=== PATIENT | female | born 1980 | race Caucasian/White ===

== ENCOUNTER → 2016-02-20 | Outpatient (CLI) | payer OTHER, MEDICAID ==
[~2016-02-20] MED LIST: CYCL1TAB29 PO; IBUP800T23 PO
[2016-02-20 14:21] LABS: AUTOMATED NEUTROPHIL # 6.7 TH/MM3 (1.8-7.7); BASOPHIL # 0.1 TH/MM3 (0-0.2); BASOPHIL % 0.8 % (0.0-2.0); EOSINOPHIL # 0.2 TH/MM3 (0-0.4); EOSINOPHIL % 1.7 % (0.0-4.0); HEMATOCRIT 38.2 % (35.0-46.0); HEMO FLAGS DIFF FINAL; LYMPH % 22.3 % (9.0-44.0); LYMPHOCYTE # 2.2 TH/MM3 (1.0-4.8); MEAN CELL VOLUME 86.5 FL (80.0-100.0); MEAN CORPUSCULAR HEMOGLOBIN 29.4 PG (27.0-34.0); MEAN CORPUSCULAR HGB CONC 33.9 % (32.0-36.0); MONO % 6.1 % (0.0-8.0); NEUT % 69.1 % (16.0-70.0); PLATELET COUNT 334 TH/MM3 (150-450); RED BLOOD COUNT 4.41 MIL/MM3 (4.00-5.30); RED CELL DISTRIBUTION WIDTH 12.8 % (11.6-17.2); WHITE BLOOD COUNT 9.7 TH/MM3 (4.0-11.0)
[2016-02-20 14:32] LABS: BACTERIA, URINE OCC /hpf; BLOOD, URINE SMALL (NEG); COMMENT (UR) CULT NOT INDICATED; CULTURE IF INDICATED CULT NOT INDICATED; GLUCOSE,URINE NEG (NEG); KETONE, URINE NEG (NEG); MUCUS URINE FEW /lpf (OCC); NITRITE,URINE NEG (NEG); SQUAMOUS EPITHELIAL CELL URINE 8 /hpf (0-5); URINE COLOR YELLOW (YELLW/STRAW)
[2016-02-20 14:37] LABS: BETA HCG QUANT LESS THAN 1 MIU/ML (0-5)
--- NOTE | 2016-02-20 22:09 | EKG ---
Date Performed: 02/20/2016 Time Performed: 13:19:26 PTAGE: 36 years EKG: Sinus rhythm NORMAL ECG NO PREVIOUS TRACING DOCTOR: Jim Cunningham Interpretating Date/Time 02/20/2016 22:07:47
== END ==
LOC: CPRE 12:55
PROVIDERS: ATTEND Obstetrics & Gynecology
DX: Z01.810 Encounter for preprocedural cardiovascular examination (principal); Z01.812 Encounter for preprocedural laboratory examination; D25.9 Leiomyoma of uterus, unspecified; N92.0 Excessive and frequent menstruation with regular cycle; N94.6 Dysmenorrhea, unspecified; R10.2 Pelvic and perineal pain
CPT/HCPCS: 36415; 81001; 84702; 85025; 93005

== ENCOUNTER 2016-02-25 11:19 | Observation (INO) | payer OTHER, MEDICAID ==
--- NOTE | 2016-02-23 13:13 | MH ---
cc: AURELIANO GROVES DATE OF ADMISSION: 02/25/2016 ADMISSION DIAGNOSIS Menorrhagia, dysmenorrhea with uterine fibroids. HISTORY OF PRESENT ILLNESS The patient is a 36-year-old single white female para 0-1-1-2 with a history of endometrial ablation in 2006, has had recurrent dysmenorrhea and bleeding and cramping since July of 2015. Her Pap smear on 01/27/2016 was normal. Her pelvic ultrasound from 02/05/2016 showed uterine enlargement to 11.5 cm with probable fibroids, endometrium of 5 mm. Both ovaries appeared normal. She is now admitted for hysterectomy. PAST MEDICAL HISTORY PREVIOUS SURGERY 1. Endometrial ablation in 2006. 2. History of twins in 2000. 3. Ectopic removed in 2003. MEDICATIONS: None. ALLERGIES KEFLEX. SULFA. LIDOCAINE. DECADRON. SERIOUS MEDICAL ILLNESSES Hidradenitis suppurativa involving the axilla. TRANSFUSIONS None. SOCIAL HISTORY: She works at [employer]. She is single. Alcohol - occasional. Cigarettes - one pack per day. Drugs - none. FAMILY HISTORY Non-contributory. PHYSICAL EXAMINATION GENERAL: An obese white female. VITAL SIGNS: Stable. HEENT EXAM: Normal. CHEST: Clear. HEART: Regular rate. BREASTS: Symmetrical. ABDOMEN: Benign. PELVIC EXAM: Normal external genitalia and BUS. Vagina is normal. Cervix normal. Uterus is enlarged, about 12 weeks' size. Adnexa are not palpable. ASSESSMENT As above. PLAN She is now admitted for laparoscopy, probable LASH procedure, possible KALLIE, possible BSO if abnormalities are found. While in the office I have explained the procedures, the risks, benefits and complications. The patient would like to proceed. MD RICKY Wagner/BRIANNE /12:46 PM /1:02 PM
[~2016-02-25] VITALS: Ht 175.3 cm; Wt 111.8 kg
[~2016-02-25 11:19] MED LIST changes: -CYCL1TAB29 PO; -IBUP800T23 PO; +KETOROLAC TROMETHAMINE 60 MG/2 ML (IM) VIAL IM ONE; +LACTATED RINGER'S 1000 ML INJ 1,000 ML IV ONE; +NEOSTIGMINE 3 MG/3 ML SYR IV ONE; +ONDANSETRON HCL 4 MG/2 ML VIAL IV PUSH ONE; +PROPOFOL 200 MG/20 ML AMP IV ONE
[2016-02-25 11:53] VITALS: BP 136/93; PULSE 111; RESP 18; TEMP 98.3; O2SAT 97
[2016-02-25] MEDS ORDERED: SODIUM CHLORID 0.9% 500 ML IV SCH (12:00)
[2016-02-25] MEDS ORDERED: METOPROLOL TARTRATE 25 MG TAB PO PRN (12:00)
[2016-02-25] MEDS ORDERED: ACETAMINOPHEN 1000 MG/100 ML VIAL IV SCH (12:00)
[2016-02-25] MEDS ORDERED: SODIUM CHLORIDE 0.9% INJ 100 ML ONE (12:00)
[2016-02-25] MEDS ORDERED: LACTATED RINGER'S 1000 ML IV SCH (12:00)
[2016-02-25] MEDS ORDERED: INSULIN HUMAN REGULAR 1,000 UNITS/10 ML VIAL SQ PRN (12:00)
[2016-02-25] MEDS ORDERED: CLINDAMYCIN INJ 900 MG in SODIUM CHLORIDE 0.9% INJ 100 ML IV SCH (12:00)
[2016-02-25] MEDS ORDERED: MIDAZOLAM HCL 2 MG/2 ML VIAL ONE ×2 (14:06→14:54)
[2016-02-25] MEDS ORDERED: SCOPOLAMINE 1.5 MG PATCH ONE (14:47)
[2016-02-25] MEDS ORDERED: FAMOTIDINE 20 MG/2 ML VIAL ONE (14:47)
[2016-02-25] MEDS ORDERED: HYDROmorphone HCL PF 1 MG/ML VIAL IV PRN (16:45)
[2016-02-25] MEDS ORDERED: ONDANSETRON ODT 4 MG TAB PO PRN (16:45)
[2016-02-25] MEDS ORDERED: PROMETHAZINE HCL 25 MG TAB PO PRN (16:45)
[2016-02-25] MEDS ORDERED: SODIUM CHLORIDE 0.9% FLUSH 5 ML FLUSH FLUSH PRN (16:45)
[2016-02-25] MEDS ORDERED: PROMETHAZINE INJ 25 MG/ML VIAL IM PRN (16:45)
[2016-02-25] MEDS ORDERED: ZOLPIDEM TARTRATE 5 MG TAB PO PRN (16:45)
[2016-02-25] MEDS ORDERED: diphenhydrAMINE HCL 25 MG CAP PO PRN (16:45)
[2016-02-25] MEDS ORDERED: ONDANSETRON HCL 4 MG/2 ML VIAL IV PRN (16:45)
[2016-02-25] MEDS ORDERED: *ONDANSETRON 4 MG VIAL PERIprocedural Use ONLY ONE (17:01)
[2016-02-25] MEDS ORDERED: fentaNYL CITRATE 250 MCG/5 ML AMP ONE (17:07)
[2016-02-25] MEDS ORDERED: DO NOT ADM ANY ANTICOAGULANT DRUGS XX PRN (17:30)
[2016-02-25] MEDS: D5-1/2 NS + KCL 20 MEQ INJ 1,000 ML IV SCH (17:55)
[2016-02-25 17:58] LABS: HEMATOCRIT 35.7 % (35.0-46.0); REVIEW FLAG FINAL
[2016-02-25] MEDS ORDERED: KETOROLAC TROMETHAMINE 30 MG/ML (IVP) VIAL IVP SCH (18:00)
[2016-02-25] MEDS: ACETAMINOPHEN 1000 MG/100 ML VIAL IV SCH (18:00)
[2016-02-25] MEDS ORDERED: DOCUSATE SODIUM 100 MG CAP PO SCH (18:00)
[2016-02-25 20:00] VITALS: BP 137/91; PULSE 76; RESP 18; TEMP 97.7; O2SAT 98
[2016-02-25] MEDS ORDERED: SODIUM CHLORIDE 0.9% FLUSH 5 ML FLUSH FLUSH SCH (21:00)
[2016-02-25] MEDS ORDERED: METOCLOPRAMIDE HCL 10 MG/2 ML VIAL IV PRN (21:45)
--- NOTE | 2016-02-25 21:48 | MP ---
cc: YANELIAURELIANO DATE OF SURGERY 02/25/2016 DIAGNOSIS Menorrhagia, dysmenorrhea with uterine fibroids. POSTOPERATIVE DIAGNOSIS Menorrhagia, dysmenorrhea with uterine fibroids. PROCEDURE LASH with a bilateral salpingectomy. ANESTHESIA General ET SURGEON Farhad Mathew MD [employer]ARN PREPARATION SUPERVISOR. Henrik Quinn. ESTIMATED BLOOD LOSS About 100 mL. FLUIDS 1.5 liters crystalloid. OBJECTIVE FINDINGS Following induction of adequate general endotracheal anesthesia, the patient was prepped and draped supine on the operating table dorsal lithotomy position usual sterile fashion, bladder being drained via Vogt catheterization. Abdomen was opened through a 4-cm curving infraumbilical incision using a knife to cut down through the skin to the fascia. Fascia opened transversely. Rectus muscle split in the midline and the peritoneum opened sharply without incident. GelPort was placed. Laparoscope was inserted. A 5 port was placed in the left and right lower quadrant. Uterus about 12 weeks' size, enlarged. Ovaries were normal. Cul-de-sacs were clear. Majority of the distal tubes were absent. Appendix was normal. Working first on the left, the harmonic scalpel was used to take the utero-ovarian pedicle, the distal tube, left round ligament, left broad ligament, left-sided bladder flap and left uterine vessels on same on the right. Harmonic scalpel was now used to amputate the fundus from the cervix. The fundus and residual tubes extracted with a pouch. Irrigation performed. No bleeding was evident. Low pressure test was done, there was no bleeding. GelPort was now removed. Peritoneum sutured with a running stitch of 2-0 Vicryl. The fascia with a running locking stitch of 0 Vicryl corner to midline and tied, subcu running 3-0 Vicryl. Skin with running subcuticular 3-0 Monocryl. Scope was now reinserted. The lower 5 port used to inspect the GelPort site was well closed. Ureters were inspected. Good peristalsis. There was no bleeding. The operative sites were coated with Evoseal, scope was removed, gas was allowed to escape and the small ports were closed with 3-0 Monocryl. Sterile bandage applied. Final counts correct and the patient was awaken and taken to recovery room. MD RICKY Wagner/ /9:06 PM /9:35 PM [place]
[2016-02-25] MEDS: KETOROLAC TROMETHAMINE 30 MG/ML (IVP) VIAL IVP SCH (23:36)
[2016-02-26] VITALS: BP 119/60; PULSE 72; RESP 18; TEMP 97.7; O2SAT 98
[2016-02-26 00:30] VITALS: BP 109/76; PULSE 75; RESP 18; TEMP 98; O2SAT 98
[2016-02-26] MEDS: ACETAMINOPHEN 1000 MG/100 ML VIAL IV SCH ×2 (00:34→09:27)
[2016-02-26] MEDS: D5-1/2 NS + KCL 20 MEQ INJ 1,000 ML IV SCH (02:16)
[2016-02-26 04:00] VITALS: BP 119/75; PULSE 74; RESP 18; TEMP 98.1; O2SAT 98
[2016-02-26 06:08] LABS: AUTOMATED NEUTROPHIL # 11.8 TH/MM3 (1.8-7.7); BASOPHIL % 0.2 % (0.0-2.0); EOSINOPHIL % 0.1 % (0.0-4.0); HEMATOCRIT 35.1 % (35.0-46.0); HEMO FLAGS DIFF FINAL; LYMPH % 8.7 % (9.0-44.0); LYMPHOCYTE # 1.2 TH/MM3 (1.0-4.8); MEAN CELL VOLUME 86.4 FL (80.0-100.0); MEAN CORPUSCULAR HEMOGLOBIN 28.8 PG (27.0-34.0); MEAN CORPUSCULAR HGB CONC 33.4 % (32.0-36.0); MONO % 3.8 % (0.0-8.0); NEUT % 87.2 % (16.0-70.0); PLATELET COUNT 290 TH/MM3 (150-450); RED BLOOD COUNT 4.06 MIL/MM3 (4.00-5.30); RED CELL DISTRIBUTION WIDTH 12.8 % (11.6-17.2); WHITE BLOOD COUNT 13.5 TH/MM3 (4.0-11.0)
[2016-02-26] MEDS: KETOROLAC TROMETHAMINE 30 MG/ML (IVP) VIAL IVP SCH (06:14)
[2016-02-26 06:30] LABS: BICARBONATE 24.6 MEQ/L (21.0-32.0); POTASSIUM 4.1 MEQ/L (3.5-5.1)
[2016-02-26 08:07] VITALS: BP 113/79; PULSE 79; RESP 18; TEMP 99.1
== END 2016-02-26 11:32 | disposition home or self-care (01) ==
LOC: HSDC 11:19 → HSDI 16:34 → H1EA 18:31
PROVIDERS: ADMIT Obstetrics & Gynecology; ATTEND Obstetrics & Gynecology
DX: D25.9 Leiomyoma of uterus, unspecified (principal); N80.0 Endometriosis of uterus; N92.0 Excessive and frequent menstruation with regular cycle; N94.6 Dysmenorrhea, unspecified; N94.89 Other specified conditions associated with female genital organs and menstrual cycle
CPT/HCPCS: 00840; 58542; 80048; 85014; 85018; 85025; 86077; 86850; 86870; 86900; 86901; 86902; 86920; 86922; 88307; G0378; J0131; J1885; J2250; J2405; J2550; J2710; J3010; J3480; J7120

== ENCOUNTER 2016-05-15 19:15 | Emergency (ER) | payer MEDICAID, OTHER ==
[~2016-05-15] VITALS: Ht 175.3 cm; Wt 112.0 kg
[2016-05-15 19:17] VITALS: BP 138/100; PULSE 121; RESP 16; TEMP 97.7; O2SAT 98
[2016-05-15] MEDS ORDERED: IBUP800T23 PO (20:40)
[2016-05-15] MEDS ORDERED: CYCL1TAB29 PO (20:40)
[2016-05-15] MEDS ORDERED: IBUPROFEN 800 MG TAB PO ONE (20:45)
[2016-05-15] MEDS ORDERED: CYCLOBENZAPRINE HCL 10 MG TAB PO ONE (20:45)
--- NOTE | 2016-05-15 20:46 | PD ---
HPI Chief Complaint: Pain: Acute or Chronic Time Seen by Provider: 20:40 Travel History International Travel<30 days: No Contact w/Intl Traveler<30days: No Traveled to known affect area: No History of Present Illness HPI 36-year-old white female presents to emergency department for evaluation or workup injury. The patient is a [employer] employee. 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 She states that she was assisting with restraining a patient in the department. She states that she was bending down on the ground helping lift a patient up to help diffuse a situation. She states that she did not notice any discomfort initially. She states later that evening and today she had noticed pain across her lower back with radiation into the right groin. She denies any history of prior back injury. She denies any Bowel or bladder changes. Patient states the pain is worse with bending and movement. She has improvement of symptoms with standing and walking. She denies any urinary symptoms. Pain is mild. PFSH Past Medical History Narrative Medical Ectopic , uterine fibroids, hidradenitis Arthritis: No Asthma: No Autoimmune Disease: No Blood Disorders: No Anxiety: No Depression: No Heart Rhythm Problems: No Cancer: No Cardiovascular Problems: No High Cholesterol: No Chest Pain: No Congestive Heart Failure: No COPD: No Cerebrovascular Accident: No Diabetes: No Diminished Hearing: No Endocrine: No GERD: No Glaucoma: No Headaches: Yes Hepatitis: No Hiatal Hernia: No Hypertension: No Immune Disorder: No Kidney Stones: No Musculoskeletal: No Neurologic: No Psychiatric: No Reproductive: Yes (FIBROIDS) Respiratory: No Immunizations Current: Yes Migraines: Yes Myocardial Infarction: No Renal Failure: No Seizures: No Sickle Cell Disease: No Sleep Apnea: No Thyroid Disease: No Ulcer: No Tetanus Vaccination: < 5 Years ?: Not Menopausal: Yes : 2 Para: 2 Ectopic : Yes Tubal Ligation: Yes Past Surgical History Narrative Surgical , salpingoectomy, uterine ablation, hysterectomy Abdominal Surgery: No AICD: No Body Medical Devices: NONE Cardiac Surgery: No Section: Yes (X1) Ear Surgery: No Endocrine Surgery: No Eye Surgery: No Genitourinary Surgery: No Gynecologic Surgery: Yes (CSECTION, TUBAL LIGATION, TUBES REMOVED D/T ECTOPIC ) Hysterectomy: Yes Joint Replacement: No Oral Surgery: Yes (WISDOM TEETH) Pacemaker: No Thoracic Surgery: No Other Surgery: Yes Social History Alcohol Use: No Tobacco Use: Yes (02/17 PPD X 12 YRS) Substance Use: No Allergies-Medications (Allergen,Severity, Reaction): Coded Allergies: Bactrim (Verified Allergy, Severe, anaph, 05/15/16) Decadron (Verified Allergy, Severe, paresthesia, 05/15/16) Keflex (Verified Allergy, Severe, anaphalAXIS, 05/15/16) Lidocaine (Verified Allergy, Severe, anaphalactic, 05/15/16) Reported Meds & Prescriptions Reported Meds & Active Scripts Active Flexeril (Cyclobenzaprine HCl) 10 Mg Tab 10 Mg PO TID Ibuprofen 800 Mg Tab 800 Mg PO Q8H PRN Review of Systems Except as stated in HPI: all other systems reviewed are Neg Musculoskeletal: Positive: Myalgias, Pain, No: Arthralgias, Limited ROM, Weakness Neurologic: No: Weakness, Paresthesia Physical Exam Narrative GENERAL: Well-developed, well-nourished in no apparent distress. Nontoxic appearing. HEAD: Normocephalic, atraumatic. EYES: Pupils equal round and reactive. Extraocular motions intact. No scleral icterus. No injection or drainage. ENT: Nose clear. Throat without erythema, tonsillar hypertrophy or exudate. Uvula midline. Airway patent. NECK: Trachea midline. Supple, nontender, moves head freely. No central bony tenderness or spasm. CARDIOVASCULAR: Regular rate and rhythm without murmurs, gallops, or rubs. RESPIRATORY: Clear to auscultation. Breath sounds equal bilaterally. No wheezes , rales, or rhonchi. GASTROINTESTINAL: Abdomen soft, non-tender, nondistended. No hepato-splenomegaly , or palpable masses. No guarding. EXTREMITIES: No clubbing, cyanosis, or edema. No joint tenderness. BACK: No central bony tenderness to palpation of dorsal lumbar spine. Patient is complaining of tenderness along the paralumbar musculature on the lumbar spine. Negative straight leg raise. Heel and toe stand. Deep tendon reflexes are 3+ bilaterally. No saddle anesthesia. Range of motion is full. Without deformity. No flank tenderness. NEUROLOGICAL: Awake, alert and oriented x 3 .Cranial nerves grossly intact. Motor and sensory grossly within normal limits. Normal speech. Data Data Last Documented VS Vital Signs Date Time Temp Pulse Resp B/P Pulse Ox O2 Delivery O2 Flow Rate FiO2 05/15/16 19:17 97.7 121 16 138/100 98 Room Air Orders Ibuprofen (Motrin) (05/15/16 20:45) Cyclobenzaprine (Flexeril) (05/15/16 20:45) MDM Medical Decision Making Medical Screen Exam Complete: Yes Emergency Medical Condition: Yes Medical Record Reviewed: Yes Differential Diagnosis MDM: High Differential diagnoses: Fracture, sprain, strain, dislocation, contusion, neurovascular injury Narrative Course This is a 36-year-old white female [employer] employee complaints of lower back pain after assisting in the psych department with a code estrada. The patient states that she injured her lower back. She states the pain is mild. She'll be given NSAID and muscle relaxer. 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 She is advised to follow-up with employee med if symptoms persist. Patient is given Motrin 800 mg and flexural 10 mg by mouth. This is lumbar strain Diagnosis Primary Impression: Lumbar strain Qualified Code: S39.012A - Lumbar strain, initial encounter Patient Instructions: General Instructions Additional Instructions: Rest. Ice for the next 3 days followed by heat . Flexeril and Voltaren. Follow-up with employee med. Call them Tuesday. Return to the ER for emergencies. Med/Other Pt SpecificInfo: Prescription(s) given Scripts Cyclobenzaprine (Flexeril)10 Mg Tab10 Mg PO TID #21 TAB Prov:Ari Cunningham MD 05/15/16 Ibuprofen 800 Mg [id number] Mg PO Q8H PRN (Pain/Inflammation) #21 TAB Prov:Ari Cunningham MD 05/15/16 Disposition: 01 DISCHARGE HOME Condition: Stable Zachariah Sharp May 15, 2016 20:46
== END 2016-05-15 21:23 | disposition home or self-care (01) ==
LOC: NETRI 19:15
DX: S39.012A Strain of muscle, fascia and tendon of lower back, initial encounter (principal); R10.31 Right lower quadrant pain; F17.200 Nicotine dependence, unspecified, uncomplicated; Z87.42 Personal history of other diseases of the female genital tract; Z87.2 Personal history of diseases of the skin and subcutaneous tissue; Z86.69 Personal history of other diseases of the nervous system and sense organs; X50.9XXA Other and unspecified overexertion or strenuous movements or postures, initial encounter; Y93.F2 Activity, caregiving, lifting; Y92.239 Unspecified place in hospital as the place of occurrence of the external cause; Y99.0 Civilian activity done for income or pay
CPT/HCPCS: 99283

== ENCOUNTER 2017-06-05 17:49 | Emergency (ER) | payer OTHER ==
[~2017-06-05] VITALS: Ht 175.3 cm; Wt 113.0 kg
[~2017-06-05 17:49] MED LIST changes: +CYCL10TA PO; +IBUP1TAB7 PO; -KETOROLAC TROMETHAMINE 60 MG/2 ML (IM) VIAL IM ONE; -LACTATED RINGER'S 1000 ML INJ 1,000 ML IV ONE; -NEOSTIGMINE 3 MG/3 ML SYR IV ONE; -ONDANSETRON HCL 4 MG/2 ML VIAL IV PUSH ONE; -PROPOFOL 200 MG/20 ML AMP IV ONE
[2017-06-05 18:00] VITALS: BP 184/86; PULSE 102; RESP 17; TEMP 98.1; O2SAT 99
[2017-06-05] MEDS ORDERED: SODIUM CHLOR 0.9% 1000 ML INJ 1,000 ML IV SCH (18:14)
[2017-06-05] MEDS ORDERED: ONDANSETRON HCL 4 MG/2 ML VIAL IVP ONE (18:15)
[2017-06-05] MEDS ORDERED: MORPHINE SULFATE 4 MG/ML INJ IV PUSH ONE (18:15)
[2017-06-05] MEDS ORDERED: SODIUM CHLORIDE 0.9% FLUSH 10 ML FLUSH IV FLUSH PRN (18:15)
[2017-06-05] MEDS ORDERED: KETOROLAC TROMETHAMINE 30 MG/ML (IVP) VIAL IVP ONE (18:15)
--- NOTE | 2017-06-05 18:23 | PD ---
HPI Chief Complaint: Abdominal Pain Time Seen by Provider: 18:09 Travel History International Travel<30 days: No Contact w/Intl Traveler<30days: No Traveled to known affect area: No History of Present Illness HPI 37-year-old female presents emergency department with ongoing and worsening abdominal pain, and nausea. Patient states she has had intermittent right upper quadrant pain and tenderness with nausea progressively worsening over the past 8 months. Patient states she was seen by her primary care physician in February and had an ultrasound but never received the results. She has an appointment with him on June 24. She states she probably has " gallbladder disease". Patient has been seen twice for this at [facility] with 2 CT scans showing no acute process. Patient states since Tuesday she has had increasing pain with radiation to the lower back and both shoulders, which is worsened with food. She reports changes in her stool including increased greasy stools and increased gas and cramping. She denies fever, chills, chest pain, or shortness of breath. Patient denies changes in urine or vaginal discharge. She denies heartburn. She is allergic to cephalexin, dexamethasone , lidocaine, sulfa. PFSH Past Medical History Arthritis: No Asthma: No Autoimmune Disease: No Blood Disorders: No Anxiety: No Depression: No Heart Rhythm Problems: No Cancer: No Cardiovascular Problems: No High Cholesterol: No Chest Pain: No Congestive Heart Failure: No COPD: No Cerebrovascular Accident: No Diabetes: No Diminished Hearing: No Endocrine: No GERD: No Glaucoma: No Headaches: Yes Hepatitis: No Hiatal Hernia: No Hypertension: No Immune Disorder: No Kidney Stones: No Medical other: Yes (HYDRANITIS,FUNGUS ON SKIN ON TORSO AND ARMS) Musculoskeletal: No Neurologic: No Psychiatric: No Reproductive: Yes (FIBROIDS) Respiratory: No Immunizations Current: Yes Migraines: Yes Myocardial Infarction: No Renal Failure: No Seizures: No Sickle Cell Disease: No Sleep Apnea: No Thyroid Disease: No Ulcer: No ?: Not LMP: UTERUS REMOVED Menopausal: Yes : 2 Para: 2 Ectopic : Yes Tubal Ligation: Yes Past Surgical History Abdominal Surgery: No AICD: No Body Medical Devices: NONE Cardiac Surgery: No Section: Yes (X1) Ear Surgery: No Endocrine Surgery: No Eye Surgery: No Genitourinary Surgery: No Gynecologic Surgery: Yes (CSECTION, TUBAL LIGATION, TUBES REMOVED D/T ECTOPIC ) Hysterectomy: Yes Joint Replacement: No Oral Surgery: Yes (WISDOM TEETH) Pacemaker: No Thoracic Surgery: No Other Surgery: Yes Social History Alcohol Use: No Tobacco Use: Yes (02/17 PPD X 12 YRS) Substance Use: No Allergies-Medications (Allergen,Severity, Reaction): Coded Allergies: cephalexin (Unverified Allergy, Severe, anaphalAXIS, 06/05/17) dexamethasone (Unverified Allergy, Severe, paresthesia, 06/05/17) lidocaine (Unverified Allergy, Severe, anaphalactic, 06/05/17) sulfamethoxazole (Unverified Allergy, Severe, anaph, 06/05/17) trimethoprim (Unverified Allergy, Severe, anaph, 06/05/17) Reported Meds & Prescriptions Reported Meds & Active Scripts Active Flexeril (Cyclobenzaprine HCl) 10 Mg Tab 10 Mg PO TID Ibuprofen 800 Mg Tab 800 Mg PO Q8H PRN Review of Systems Except as stated in HPI: all other systems reviewed are Neg General / Constitutional: No: Fever Eyes: No: Visual changes HENT: No: Headaches Cardiovascular: No: Chest Pain or Discomfort Respiratory: No: Shortness of Breath Gastrointestinal: Positive: Nausea, Diarrhea, Abdominal Pain, Changes in Bowel Habits, Indigestion, No: Vomiting, Hematemesis, Hematochezia, Constipation, Dysphagia, Loss of Appetite, Other Genitourinary: No: Urgency, Frequency, Dysuria Musculoskeletal: No: Pain Skin: No Rash Neurologic: No: Weakness Psychiatric: No: Depression Endocrine: No: Polydipsia Hematologic/Lymphatic: No: Easy Bruising Physical Exam Narrative GENERAL: Patient appears in mild to moderate distress. SKIN: Warm and dry. Normal color. Normal turgor. No rash. HEAD: Atraumatic. Normocephalic. EYES: Pupils equal and round. No scleral icterus. No injection or drainage. ENT: No nasal bleeding or discharge. Mucous membranes pink and moist. Pharynx is clear. Airways patent. NECK: Trachea midline. Supple and nontender.. CARDIOVASCULAR: Regular rate and rhythm. RESPIRATORY: No accessory muscle use. Clear to auscultation. Breath sounds equal bilaterally. GASTROINTESTINAL: Abdomen soft, moderate right upper quadrant tenderness, nondistended. Positive Sams sign. Hepatic and splenic margins not palpable. No CVA tenderness. MUSCULOSKELETAL: Extremities without clubbing, cyanosis, or edema. No obvious deformities. NEUROLOGICAL: Awake and alert. No obvious cranial nerve deficits. Motor grossly within normal limits. Five out of 5 muscle strength in the arms and legs. Normal speech. PSYCHIATRIC: Appropriate mood and affect; insight and judgment normal. Data Data Last Documented VS Vital Signs Date Time Temp Pulse Resp B/P (MAP) Pulse Ox O2 Delivery O2 Flow Rate FiO2 06/05/17 18:00 98.1 102 17 184/86 (118) 99 Orders Orders Urinalysis - C+S If Indicated (06/05/17 18:03) Complete Blood Count With Diff (06/05/17 18:14) Comprehensive Metabolic Panel (06/05/17 18:14) Lipase (06/05/17 18:14) Prothrombin Time / Inr (Pt) (06/05/17 18:14) Act Partial Throm Time (Ptt) (06/05/17 18:14) Us Abdomen Gallbladder (06/05/17 ) Iv Access Insert/Monitor (06/05/17 18:14) Ecg Monitoring (06/05/17 18:14) Oximetry (06/05/17 18:14) NPO (06/05/17 18:14) Morphine Inj (Morphine Inj) (06/05/17 18:15) Ondansetron Inj (Zofran Inj) (06/05/17 18:15) Sodium Chlor 0.9% 1000 Ml Inj (Ns 1000 M (06/05/17 18:14) Sodium Chloride 0.9% Flush (Ns Flush) (06/05/17 18:15) Electrocardiogram (06/05/17 18:14) Ketorolac Inj (Toradol Inj) (06/05/17 18:15) Lactic Acid (06/05/17 18:24) Labs Laboratory Tests Test 06/05/17 18:06 06/05/17 18:25 Urine Color COLORLESS Urine Turbidity CLEAR Urine pH 6.0 Urine Specific [place] 1.003 Urine Protein NEG mg/dL Urine Glucose (UA) NEG mg/dL Urine Ketones NEG mg/dL Urine Occult Blood TRACE Urine Nitrite NEG Urine Bilirubin NEG Urine Urobilinogen LESS THAN 2.0 MG/DL Urine Leukocyte Esterase NEG Urine RBC 1 /hpf Urine WBC 1 /hpf Urine Squamous Epithelial Cells 3 /hpf Urine Bacteria OCC /hpf Microscopic Urinalysis Comment CULT NOT INDICATED White Blood Count 11.4 TH/MM3 Red Blood Count 4.26 MIL/MM3 Hemoglobin 12.4 GM/DL Hematocrit 36.9 % Mean Corpuscular Volume 86.6 FL Mean Corpuscular Hemoglobin 29.2 PG Mean Corpuscular Hemoglobin Concent 33.7 % Red Cell Distribution Width 12.7 % Platelet Count 342 TH/MM3 Mean Platelet Volume 7.5 FL Neutrophils (%) (Auto) 64.9 % Lymphocytes (%) (Auto) 26.6 % Monocytes (%) (Auto) 6.2 % Eosinophils (%) (Auto) 1.6 % Basophils (%) (Auto) 0.7 % Neutrophils # (Auto) 7.4 TH/MM3 Lymphocytes # (Auto) 3.0 TH/MM3 Monocytes # (Auto) 0.7 TH/MM3 Eosinophils # (Auto) 0.2 TH/MM3 Basophils # (Auto) 0.1 TH/MM3 CBC Comment DIFF FINAL Differential Comment MDM Medical Decision Making Medical Screen Exam Complete: Yes Emergency Medical Condition: Yes Medical Record Reviewed: Yes Differential Diagnosis Gastritis. Gallbladder disease. Pancreatitis Narrative Course Patient appears in moderate distress. Labs ordered including CBC, CMP, coagulation studies, lipase, lactic acid, and urinalysis. Ultrasound of the gallbladder is ordered. Patient is given IV morphine 2 mg, 30 mg Toradol IV, and 4 mg Zofran IV. Patient is given 1000 mL of normal saline bolus. Urinalysis is unremarkable. EKG shows normal sinus rhythm. CBC shows leukocytosis of 11.4. 1900 hrs., shift change, care of patient is turned over to Rosanna Green nurse practitioner for ongoing treatment and disposition. Condition: Stable Alex Horowitz Jun 05, 2017 18:23
[2017-06-05 18:32] LABS: BACTERIA, URINE OCC /hpf; BILIRUBIN, URINE NEG (NEG); BLOOD, URINE TRACE (NEG); GLUCOSE,URINE NEG (NEG); KETONE, URINE NEG (NEG); NITRITE,URINE NEG (NEG); SQUAMOUS EPITHELIAL CELL URINE 3 /hpf (0-5); URINE COLOR COLORLESS (YELLW/STRAW); URINE LEUKOCYTE ESTERASE NEG (NEG)
[2017-06-05 18:53] LABS: AUTOMATED NEUTROPHIL # 7.4 TH/MM3 (1.8-7.7); BASOPHIL # 0.1 TH/MM3 (0-0.2); BASOPHIL % 0.7 % (0.0-2.0); EOSINOPHIL # 0.2 TH/MM3 (0-0.4); EOSINOPHIL % 1.6 % (0.0-4.0); HEMATOCRIT 36.9 % (35.0-46.0); HEMOGLOBIN 12.4 GM/DL (11.6-15.3); LYMPH % 26.6 % (9.0-44.0); MEAN CELL VOLUME 86.6 FL (80.0-100.0); MEAN CORPUSCULAR HEMOGLOBIN 29.2 PG (27.0-34.0); MEAN CORPUSCULAR HGB CONC 33.7 % (32.0-36.0); MEAN PLATELET VOLUME 7.5 FL (7.0-11.0); MONO % 6.2 % (0.0-8.0); MONOCYTE # 0.7 TH/MM3 (0-0.9); NEUT % 64.9 % (16.0-70.0); PLATELET COUNT 342 TH/MM3 (150-450); RED BLOOD COUNT 4.26 MIL/MM3 (4.00-5.30); RED CELL DISTRIBUTION WIDTH 12.7 % (11.6-17.2); WHITE BLOOD COUNT 11.4 TH/MM3 (4.0-11.0)
[2017-06-05 18:58] LABS: PROTHROMBIN TIME - PATIENT 10.1 SEC (9.8-11.6)
[2017-06-05 19:05] LABS: ALBUMIN 3.5 GM/DL (3.4-5.0); AST (GOT) 12 U/L (15-37); BICARBONATE 24.5 MEQ/L (21.0-32.0); BLOOD UREA NITROGEN 9 MG/DL (7-18); CALCIUM 8.9 MG/DL (8.5-10.1); CHLORIDE 106 MEQ/L (98-107); CREATININE 0.75 MG/DL (0.50-1.00); GLOMERULAR FILTRATION RATE 86 ML/MIN (>89); GLUCOSE,RANDOM 88 MG/DL (74-106); SODIUM (NA) 138 MEQ/L (136-145)
[2017-06-05 19:06] LABS: ALT (GPT) 34 U/L (10-53)
[2017-06-05 19:09] LABS: ALKALINE PHOSPHATASE 93 U/L (45-117); TOTAL BILIRUBIN ADULT 0.2 MG/DL (0.2-1.0); TOTAL PROTEIN 7.8 GM/DL (6.4-8.2)
--- NOTE | 2017-06-05 19:20 | PD ---
Physical Exam Date Seen by Provider: Jun 05, 2017 Time Seen by Provider: 19:20 Narrative For full history and physical examination please see previous providers note. Data Data Last Documented VS Vital Signs Date Time Temp Pulse Resp B/P (MAP) Pulse Ox O2 Delivery O2 Flow Rate FiO2 06/05/17 19:31 92 20 119/77 (91) 100 Room Air 06/05/17 18:00 98.1 Orders Orders Urinalysis - C+S If Indicated (06/05/17 18:03) Complete Blood Count With Diff (06/05/17 18:14) Comprehensive Metabolic Panel (06/05/17 18:14) Lipase (06/05/17 18:14) Prothrombin Time / Inr (Pt) (06/05/17 18:14) Act Partial Throm Time (Ptt) (06/05/17 18:14) Us Abdomen Gallbladder (06/05/17 ) Iv Access Insert/Monitor (06/05/17 18:14) Ecg Monitoring (06/05/17 18:14) Oximetry (06/05/17 18:14) NPO (06/05/17 18:14) Morphine Inj (Morphine Inj) (06/05/17 18:15) Ondansetron Inj (Zofran Inj) (06/05/17 18:15) Sodium Chlor 0.9% 1000 Ml Inj (Ns 1000 M (06/05/17 18:14) Sodium Chloride 0.9% Flush (Ns Flush) (06/05/17 18:15) Electrocardiogram (06/05/17 18:14) Ketorolac Inj (Toradol Inj) (06/05/17 18:15) Lactic Acid (06/05/17 18:24) Prochlorperazine Inj (Compazine Inj) (06/05/17 19:30) Morphine Inj (Morphine Inj) (06/05/17 19:30) Labs Laboratory Tests Test 06/05/17 18:06 06/05/17 18:25 Urine Color COLORLESS Urine Turbidity CLEAR Urine pH 6.0 Urine Specific [place] 1.003 Urine Protein NEG mg/dL Urine Glucose (UA) NEG mg/dL Urine Ketones NEG mg/dL Urine Occult Blood TRACE Urine Nitrite NEG Urine Bilirubin NEG Urine Urobilinogen LESS THAN 2.0 MG/DL Urine Leukocyte Esterase NEG Urine RBC 1 /hpf Urine WBC 1 /hpf Urine Squamous Epithelial Cells 3 /hpf Urine Bacteria OCC /hpf Microscopic Urinalysis Comment CULT NOT INDICATED White Blood Count 11.4 TH/MM3 Red Blood Count 4.26 MIL/MM3 Hemoglobin 12.4 GM/DL Hematocrit 36.9 % Mean Corpuscular Volume 86.6 FL Mean Corpuscular Hemoglobin 29.2 PG Mean Corpuscular Hemoglobin Concent 33.7 % Red Cell Distribution Width 12.7 % Platelet Count 342 TH/MM3 Mean Platelet Volume 7.5 FL Neutrophils (%) (Auto) 64.9 % Lymphocytes (%) (Auto) 26.6 % Monocytes (%) (Auto) 6.2 % Eosinophils (%) (Auto) 1.6 % Basophils (%) (Auto) 0.7 % Neutrophils # (Auto) 7.4 TH/MM3 Lymphocytes # (Auto) 3.0 TH/MM3 Monocytes # (Auto) 0.7 TH/MM3 Eosinophils # (Auto) 0.2 TH/MM3 Basophils # (Auto) 0.1 TH/MM3 CBC Comment DIFF FINAL Differential Comment Prothrombin Time 10.1 SEC Prothromb Time International Ratio 1.0 RATIO Activated Partial Thromboplast Time 26.3 SEC Blood Urea Nitrogen 9 MG/DL Creatinine 0.75 MG/DL Random Glucose 88 MG/DL Total Protein 7.8 GM/DL Albumin 3.5 GM/DL Calcium Level 8.9 MG/DL Alkaline Phosphatase 93 U/L Aspartate Amino Transf (AST/SGOT) 12 U/L Alanine Aminotransferase (ALT/SGPT) 34 U/L Total Bilirubin 0.2 MG/DL Sodium Level 138 MEQ/L Potassium Level 3.8 MEQ/L Chloride Level 106 MEQ/L Carbon Dioxide Level 24.5 MEQ/L Anion Gap 8 MEQ/L Estimat Glomerular Filtration Rate 86 ML/MIN Lactic Acid Level 1.3 mmol/L Lipase 89 U/L [facility] Medical Record Reviewed: Yes Supervised Visit with JOANN: Yes Interpretation(s) Laboratory Tests Test 06/05/17 18:06 06/05/17 18:25 Urine Color COLORLESS Urine Turbidity CLEAR Urine pH 6.0 Urine Specific [place] 1.003 Urine Protein NEG mg/dL Urine Glucose (UA) NEG mg/dL Urine Ketones NEG mg/dL Urine Occult Blood TRACE Urine Nitrite NEG Urine Bilirubin NEG Urine Urobilinogen LESS THAN 2.0 MG/DL Urine Leukocyte Esterase NEG Urine RBC 1 /hpf Urine WBC 1 /hpf Urine Squamous Epithelial Cells 3 /hpf Urine Bacteria OCC /hpf Microscopic Urinalysis Comment CULT NOT INDICATED White Blood Count 11.4 TH/MM3 Red Blood Count 4.26 MIL/MM3 Hemoglobin 12.4 GM/DL Hematocrit 36.9 % Mean Corpuscular Volume 86.6 FL Mean Corpuscular Hemoglobin 29.2 PG Mean Corpuscular Hemoglobin Concent 33.7 % Red Cell Distribution Width 12.7 % Platelet Count 342 TH/MM3 Mean Platelet Volume 7.5 FL Neutrophils (%) (Auto) 64.9 % Lymphocytes (%) (Auto) 26.6 % Monocytes (%) (Auto) 6.2 % Eosinophils (%) (Auto) 1.6 % Basophils (%) (Auto) 0.7 % Neutrophils # (Auto) 7.4 TH/MM3 Lymphocytes # (Auto) 3.0 TH/MM3 Monocytes # (Auto) 0.7 TH/MM3 Eosinophils # (Auto) 0.2 TH/MM3 Basophils # (Auto) 0.1 TH/MM3 CBC Comment DIFF FINAL Differential Comment Prothrombin Time 10.1 SEC Prothromb Time International Ratio 1.0 RATIO Activated Partial Thromboplast Time 26.3 SEC Blood Urea Nitrogen 9 MG/DL Creatinine 0.75 MG/DL Random Glucose 88 MG/DL Total Protein 7.8 GM/DL Albumin 3.5 GM/DL Calcium Level 8.9 MG/DL Alkaline Phosphatase 93 U/L Aspartate Amino Transf (AST/SGOT) 12 U/L Alanine Aminotransferase (ALT/SGPT) 34 U/L Total Bilirubin 0.2 MG/DL Sodium Level 138 MEQ/L Potassium Level 3.8 MEQ/L Chloride Level 106 MEQ/L Carbon Dioxide Level 24.5 MEQ/L Anion Gap 8 MEQ/L Estimat Glomerular Filtration Rate 86 ML/MIN Lactic Acid Level 1.3 mmol/L Lipase 89 U/L Vital Signs Date Time Temp Pulse Resp B/P (MAP) Pulse Ox O2 Delivery O2 Flow Rate FiO2 06/05/17 18:00 98.1 102 17 184/86 (093) 99 Narrative Course Patient is a 37-year-old female that was signed out to me at change of shift. She presented with intermittent chronic abdominal pain and nausea. Labs reviewed, no acute findings identified. Ultrasound shows cholelithiasis with no acute inflammation. Also shows hepatic steatosis. Patient was reassessed, she reports improvement in her pain and nausea. She feels comfortable going home, she was reassured that there were no acute findings at this time. Patient will be given copies of reports, she is to follow-up with her primary doctor as well as a general surgeon. She was given strict return precautions. Patient verbalized understanding of discharge instructions. Patient stable for discharge. Diagnosis Primary Impression: Cholelithiasis Qualified Codes: K80.20 - Calculus of gallbladder without cholecystitis without obstruction Additional Impression: Hepatic steatosis Referrals: Red Mathew MD 3 days General Surgeon Primary Care Physician Patient Instructions: Biliary Colic (ED), Cholecystitis (ED), General Instructions, Narcotic given in the ED Additional Instruction: Follow-up with your primary doctor Follow-up with general surgeon, Dr. Red Mathew Do not drive or operate machinery while taking narcotic pain medication Return to emergency department immediately for any new or worsening symptoms Med/Other Pt SpecificInfo: Prescription(s) given Scripts Ondansetron Odt (Zofran Odt) 4 Mg Tab 4 MG SL Q6HR Y for Nausea/Vomiting, #15 TAB 0 Refills Prov: Rosanna Harp 06/05/17 Tramadol (Tramadol) 50 Mg Tab 50 MG PO Q6H Y for PAIN, #10 TAB 0 Refills Prov: Rosanna Harp 06/05/17 Disposition: 01 DISCHARGE HOME Condition: Stable Rosanna Harp Jun 05, 2017 19:20
[2017-06-05] MEDS ORDERED: MORPHINE SULFATE 2 MG/ML SYRINGE IV PUSH ONE (19:30)
[2017-06-05] MEDS ORDERED: PROCHLORPERAZINE INJ 10 MG/2 ML VIAL IV PUSH ONE (19:30)
[2017-06-05 19:31] VITALS: BP 119/77; PULSE 92; RESP 20; O2SAT 100
--- NOTE | 2017-06-05 20:09 | RADRPT ---
EXAM DATE/TIME: 06/05/2017 19:27 [place] COMPARISON: No previous studies available for comparison. INDICATIONS : RUQ pain/nausea. MEDICAL HISTORY : Fibroids. Ectopic . Migraines. Hydranitis. Fungus on skin on torso and arms. SURGICAL HISTORY : Hysterectomy. Tubal ligation. section. ENCOUNTER: Initial ACUITY: 2 days PAIN SCORE: 8/10 LOCATION: Right upper quadrant MEASUREMENTS: LIVER: 19.0 cm length COMMON DUCT: 7 mm RIGHT KIDNEY: 11.7 x 5.4 x 5.1 cm FINDINGS: LIVER: Increased echotexture without focal lesion or ductal dilatation. COMMON DUCT: No intraluminal mass or stone visualized. GALLBLADDER: There are stones within the gallbladder. No wall thickening or pericholecystic fluid is present. PANCREAS: The visualized portions are within normal limits. RIGHT KIDNEY: No evidence of hydronephrosis, stone, or mass. CONCLUSION: 1. Cholelithiasis. No findings are present to indicate acute gallbladder inflammation. 2. Hepatic steatosis. Spike Mi MD on June 05, 2017 at 20:06 Board Certified Radiologist. This report was verified electronically.
[2017-06-05] MEDS ORDERED: ZOFR4TAB3 SL (20:19)
[2017-06-05] MEDS ORDERED: TRAM50TA PO (20:19)
[2017-06-05 20:51] VITALS: BP 132/86
--- NOTE | 2017-06-05 23:47 | EKG ---
Date Performed: 06/05/2017 Time Performed: 18:38:14 PTAGE: 37 years EKG: Sinus rhythm NORMAL ECG PREVIOUS TRACING : 02/20/2016 13.19 Since the previous tracing, no significant change noted DOCTOR: Jim Cunningham Interpretating Date/Time 06/05/2017 23:46:30
== END 2017-06-05 21:04 | disposition home or self-care (01) ==
LOC: NEPD 17:49
DX: K80.20 Calculus of gallbladder without cholecystitis without obstruction (principal); K76.0 Fatty (change of) liver, not elsewhere classified; F17.210 Nicotine dependence, cigarettes, uncomplicated
CPT/HCPCS: 76705; 80053; 81001; 83605; 83690; 85025; 85610; 85730; 93005; 96361; 96374; 96375; 96376; 99285; J0780; J1885; J2270; J2405; J7030

== ENCOUNTER 2017-06-08 21:10 | Observation (INO) | payer OTHER ==
[~2017-06-08] VITALS: Ht 175.3 cm; Wt 115.0 kg
[~2017-06-08 21:10] MED LIST changes: +TRAM50TA PO; +ZOFR4TAB3 SL
[2017-06-08 21:22] VITALS: BP 160/102; PULSE 111; RESP 16; TEMP 97.2; O2SAT 100
[2017-06-08] MEDS ORDERED: SODIUM CHLOR 0.9% 1000 ML INJ 1,000 ML IV SCH (23:03)
[2017-06-08] MEDS ORDERED: KETOROLAC TROMETHAMINE 30 MG/ML (IVP) VIAL IVP ONE (23:15)
[2017-06-08] MEDS ORDERED: MORPHINE SULFATE 4 MG/ML INJ IV PUSH ONE (23:15)
[2017-06-08] MEDS ORDERED: SODIUM CHLORIDE 0.9% FLUSH 10 ML FLUSH IV FLUSH PRN (23:15)
[2017-06-08] MEDS ORDERED: ONDANSETRON HCL 4 MG/2 ML VIAL IVP ONE (23:15)
--- NOTE | 2017-06-08 23:17 | PD ---
HPI Chief Complaint: Abdominal Pain Time Seen by Provider: 23:01 Travel History International Travel<30 days: No Contact w/Intl Traveler<30days: No Traveled to known affect area: No History of Present Illness HPI The patient is a 37-year-old female who presents to the emergency department via private vehicle for right upper quadrant abdominal pain. The patient was evaluated in the emergency department earlier this week and had an ultrasound which reveals cholelithiasis but no evidence of acute cholecystitis. However, the patient continues to have right upper quadrant abdominal pain that radiates to the right shoulder blade in the right lower back. The patient does note postprandial symptoms and has been unable to eat or drink anything today secondary to persistent pain with nausea and vomiting. She denies any diarrhea or lower abdominal pain. The patient has an outpatient appointment on June [address] Denis, however, has been unable to keep any foods or fluids down throughout the day. Symptoms are moderate. Exacerbated after eating and drinking liquids, and there are no current alleviating factors, including tramadol which she was prescribed for pain. She denies any fever. PFSH Past Medical History Arthritis: No Asthma: No Autoimmune Disease: No Blood Disorders: No Anxiety: No Depression: No Heart Rhythm Problems: No Cancer: No Cardiovascular Problems: No High Cholesterol: No Chest Pain: No Congestive Heart Failure: No COPD: No Cerebrovascular Accident: No Diabetes: No Diminished Hearing: No Endocrine: No Gastrointestinal Disorders: Yes (gallstones) GERD: No Glaucoma: No Headaches: Yes Hepatitis: No Hiatal Hernia: No Hypertension: No Immune Disorder: No Kidney Stones: No Medical other: Yes (HYDRANITIS,FUNGUS ON SKIN ON TORSO AND ARMS) Musculoskeletal: No Neurologic: No Psychiatric: No Reproductive: Yes (FIBROIDS) Respiratory: No Immunizations Current: Yes Migraines: Yes Myocardial Infarction: No Renal Failure: No Seizures: No Sickle Cell Disease: No Sleep Apnea: No Thyroid Disease: No Ulcer: No Tetanus Vaccination: Unknown Influenza Vaccination: Yes ?: Not Menopausal: Yes : 2 Para: 2 Ectopic : Yes Tubal Ligation: Yes Past Surgical History Abdominal Surgery: No AICD: No Body Medical Devices: NONE Cardiac Surgery: No Section: Yes (X1) Ear Surgery: No Endocrine Surgery: No Eye Surgery: No Genitourinary Surgery: No Gynecologic Surgery: Yes (CSECTION, TUBAL LIGATION, TUBES REMOVED D/T ECTOPIC ) Hysterectomy: Yes Joint Replacement: No Oral Surgery: Yes (WISDOM TEETH) Pacemaker: No Thoracic Surgery: No Other Surgery: Yes Social History Alcohol Use: No Tobacco Use: Yes (/ PPD X 12 YRS) Substance Use: No Allergies-Medications (Allergen,Severity, Reaction): Coded Allergies: cephalexin (Unverified Allergy, Severe, anaphalAXIS, 06/05/17) dexamethasone (Unverified Allergy, Severe, paresthesia, 06/05/17) lidocaine (Unverified Allergy, Severe, anaphalactic, 06/05/17) sulfamethoxazole (Unverified Allergy, Severe, anaph, 06/05/17) trimethoprim (Unverified Allergy, Severe, anaph, 06/05/17) Reported Meds & Prescriptions Reported Meds & Active Scripts Active Zofran Odt (Ondansetron Odt) 4 Mg Tab 4 Mg SL Q6HR PRN Tramadol (Tramadol HCl) 50 Mg Tab 50 Mg PO Q6H PRN Flexeril (Cyclobenzaprine HCl) 10 Mg Tab 10 Mg PO TID Ibuprofen 800 Mg Tab 800 Mg PO Q8H PRN Review of Systems Except as stated in HPI: all other systems reviewed are Neg General / Constitutional: No: Fever, Chills Cardiovascular: No: Chest Pain or Discomfort Respiratory: No: Shortness of Breath Gastrointestinal: Positive: Nausea, Vomiting, Abdominal Pain, No: Diarrhea Genitourinary: No: Dysuria Skin: No Rash Physical Exam Narrative GENERAL: Awake, alert, pleasant 37-year-old female who appears her stated age and is in no acute respiratory distress. Patient appears in moderate discomfort. SKIN: Focused skin assessment warm/dry. HEAD: Atraumatic. Normocephalic. EYES: No injection or drainage. ENT: No nasal bleeding or discharge. Mucous membranes pink and moist. NECK: Trachea midline. No JVD. CARDIOVASCULAR: Regular rate and rhythm. No murmur appreciated. RESPIRATORY: No accessory muscle use. Clear to auscultation. Breath sounds equal bilaterally. GASTROINTESTINAL: Abdomen soft, tender to palpation right upper quadrant. Positive Sams's. Mild guarding but no rigidity. Back: No CVA tenderness. Positive Boas sign. MUSCULOSKELETAL: No obvious deformities. No clubbing. No cyanosis. No edema. NEUROLOGICAL: Awake and alert. No obvious cranial nerve deficits. Motor grossly within normal limits. Normal speech. PSYCHIATRIC: Appropriate mood and affect; insight and judgment normal. Data Data Last Documented VS Vital Signs Date Time Temp Pulse Resp B/P (MAP) Pulse Ox O2 Delivery O2 Flow Rate FiO2 06/08/17 23:40 99 06/08/17 21:22 97.2 111 16 160/102 (121) Orders Orders Complete Blood Count With Diff (06/08/17 23:03) Comprehensive Metabolic Panel (06/08/17 23:03) Lipase (06/08/17 23:03) Lactic Acid (06/08/17 23:03) Urinalysis - C+S If Indicated (06/08/17 23:03) Iv Access Insert/Monitor (06/08/17 23:03) Ecg Monitoring (06/08/17:03) Oximetry (06/08/17 23:03) Morphine Inj (Morphine Inj) (06/08/17 23:15) Ondansetron Inj (Zofran Inj) (06/08/17 23:15) Sodium Chlor 0.9% 1000 Ml Inj (Ns 1000 M (06/08/17 23:03) Sodium Chloride 0.9% Flush (Ns Flush) (06/08/17 23:15) Ketorolac Inj (Toradol Inj) (06/08/17 23:15) Labs Laboratory Tests Test 06/08/17 23:22 White Blood Count 15.1 TH/MM3 Red Blood Count 4.29 MIL/MM3 Hemoglobin 12.7 GM/DL Hematocrit 37.1 % Mean Corpuscular Volume 86.4 FL Mean Corpuscular Hemoglobin 29.7 PG Mean Corpuscular Hemoglobin Concent 34.3 % Red Cell Distribution Width 12.5 % Platelet Count 355 TH/MM3 Mean Platelet Volume 7.3 FL Neutrophils (%) (Auto) 72.5 % Lymphocytes (%) (Auto) 21.1 % Monocytes (%) (Auto) 5.2 % Eosinophils (%) (Auto) 0.5 % Basophils (%) (Auto) 0.7 % Neutrophils # (Auto) 11.0 TH/MM3 Lymphocytes # (Auto) 3.2 TH/MM3 Monocytes # (Auto) 0.8 TH/MM3 Eosinophils # (Auto) 0.1 TH/MM3 Basophils # (Auto) 0.1 TH/MM3 CBC Comment DIFF FINAL Differential Comment Urine Color COLORLESS Urine Turbidity CLEAR Urine pH 6.0 Urine Specific [place] 1.001 Urine Protein NEG mg/dL Urine Glucose (UA) NEG mg/dL Urine Ketones NEG mg/dL Urine Occult Blood TRACE Urine Nitrite NEG Urine Bilirubin NEG Urine Urobilinogen LESS THAN 2.0 MG/DL Urine Leukocyte Esterase TRACE Urine RBC 2 /hpf Urine WBC 2 /hpf Urine Squamous Epithelial Cells 1 /hpf Urine Bacteria RARE /hpf Microscopic Urinalysis Comment CULT NOT INDICATED Blood Urea Nitrogen 12 MG/DL Creatinine 0.79 MG/DL Random Glucose 94 MG/DL Total Protein 7.9 GM/DL Albumin 3.6 GM/DL Calcium Level 9.6 MG/DL Alkaline Phosphatase 93 U/L Aspartate Amino Transf (AST/SGOT) 17 U/L Alanine Aminotransferase (ALT/SGPT) 29 U/L Total Bilirubin 0.2 MG/DL Sodium Level 141 MEQ/L Potassium Level 3.9 MEQ/L Chloride Level 108 MEQ/L Carbon Dioxide Level 24.1 MEQ/L Anion Gap 9 MEQ/L Estimat Glomerular Filtration Rate 81 ML/MIN Lactic Acid Level 0.6 mmol/L Lipase 661 U/L MDM Medical Decision Making Medical Screen Exam Complete: Yes Emergency Medical Condition: Yes Medical Record Reviewed: Yes Interpretation(s) Laboratory Tests Test 06/08/17 23:22 White Blood Count 15.1 TH/MM3 Red Blood Count 4.29 MIL/MM3 Hemoglobin 12.7 GM/DL Hematocrit 37.1 % Mean Corpuscular Volume 86.4 FL Mean Corpuscular Hemoglobin 29.7 PG Mean Corpuscular Hemoglobin Concent 34.3 % Red Cell Distribution Width 12.5 % Platelet Count 355 TH/MM3 Mean Platelet Volume 7.3 FL Neutrophils (%) (Auto) 72.5 % Lymphocytes (%) (Auto) 21.1 % Monocytes (%) (Auto) 5.2 % Eosinophils (%) (Auto) 0.5 % Basophils (%) (Auto) 0.7 % Neutrophils # (Auto) 11.0 TH/MM3 Lymphocytes # (Auto) 3.2 TH/MM3 Monocytes # (Auto) 0.8 TH/MM3 Eosinophils # (Auto) 0.1 TH/MM3 Basophils # (Auto) 0.1 TH/MM3 CBC Comment DIFF FINAL Differential Comment Urine Color COLORLESS Urine Turbidity CLEAR Urine pH 6.0 Urine Specific [place] 1.001 Urine Protein NEG mg/dL Urine Glucose (UA) NEG mg/dL Urine Ketones NEG mg/dL Urine Occult Blood TRACE Urine Nitrite NEG Urine Bilirubin NEG Urine Urobilinogen LESS THAN 2.0 MG/DL Urine Leukocyte Esterase TRACE Urine RBC 2 /hpf Urine WBC 2 /hpf Urine Squamous Epithelial Cells 1 /hpf Urine Bacteria RARE /hpf Microscopic Urinalysis Comment CULT NOT INDICATED Blood Urea Nitrogen 12 MG/DL Creatinine 0.79 MG/DL Random Glucose 94 MG/DL Total Protein 7.9 GM/DL Albumin 3.6 GM/DL Calcium Level 9.6 MG/DL Alkaline Phosphatase 93 U/L Aspartate Amino Transf (AST/SGOT) 17 U/L Alanine Aminotransferase (ALT/SGPT) 29 U/L Total Bilirubin 0.2 MG/DL Sodium Level 141 MEQ/L Potassium Level 3.9 MEQ/L Chloride Level 108 MEQ/L Carbon Dioxide Level 24.1 MEQ/L Anion Gap 9 MEQ/L Estimat Glomerular Filtration Rate 81 ML/MIN Lactic Acid Level 0.6 mmol/L Lipase 661 U/L Differential Diagnosis Differential diagnosis includes cholecystitis, biliary colic, choledocholithiasis, symptomatic gallstone, pancreatitis, peptic ulcer disease, gastritis, right lower lobe pneumonia, atypical appendicitis. Narrative Course IV was established, labs are drawn and sent, and the patient was placed on cardiac telemetry monitoring and continuous pulse oximetry monitoring. The patient was administered morphine, Zofran, Toradol, and IV fluids. I reviewed the patient's EMR, patient recently had an ultrasound of the gallbladder which does reveal gallstones but no evidence of acute cholecystitis. The patient's white count was elevated at 15.1, lipase went from 78-661. However, the other LFTs are unremarkable. I am unsure if the patient recently passed a gallstone or possibly has choledocholithiasis with secondary pancreatitis. The patient did recently have an ultrasound which revealed cholelithiasis but no evidence of acute cholecystitis. I discussed the patient with the on-call [facility] surgeon, Dr. Baker, who states the patient can be admitted to the medical service. The patient may benefit from possible MRCP or repeat ultrasound in the morning if symptoms persist. Physician Communication Physician Communication The patient has [facility], therefore, [facility] was paged for 23 hour observation. I discussed the patient Dr. Carlos who agrees with [address] Woody. Diagnosis Primary Impression: Pancreatitis Qualified Codes: K85.90 - Acute pancreatitis without necrosis or infection, unspecified Additional Impression: Symptomatic cholelithiasis Admitting Information Admitting Physician Requests: Observation Condition: Stable Sen Rucker MD Jun 08, 2017 23:17
[2017-06-08 23:35] LABS: BACTERIA, URINE RARE /hpf; BILIRUBIN, URINE NEG (NEG); BLOOD, URINE TRACE (NEG); GLUCOSE,URINE NEG (NEG); KETONE, URINE NEG (NEG); NITRITE,URINE NEG (NEG); SQUAMOUS EPITHELIAL CELL URINE 1 /hpf (0-5); URINE COLOR COLORLESS (YELLW/STRAW); URINE LEUKOCYTE ESTERASE TRACE (NEG)
[2017-06-08 23:39] LABS: BASOPHIL # 0.1 TH/MM3 (0-0.2); BASOPHIL % 0.7 % (0.0-2.0); EOSINOPHIL # 0.1 TH/MM3 (0-0.4); EOSINOPHIL % 0.5 % (0.0-4.0); HEMATOCRIT 37.1 % (35.0-46.0); HEMOGLOBIN 12.7 GM/DL (11.6-15.3); LYMPH % 21.1 % (9.0-44.0); LYMPHOCYTE # 3.2 TH/MM3 (1.0-4.8); MEAN CELL VOLUME 86.4 FL (80.0-100.0); MEAN CORPUSCULAR HEMOGLOBIN 29.7 PG (27.0-34.0); MEAN CORPUSCULAR HGB CONC 34.3 % (32.0-36.0); MEAN PLATELET VOLUME 7.3 FL (7.0-11.0); MONO % 5.2 % (0.0-8.0); MONOCYTE # 0.8 TH/MM3 (0-0.9); NEUT % 72.5 % (16.0-70.0); PLATELET COUNT 355 TH/MM3 (150-450); RED BLOOD COUNT 4.29 MIL/MM3 (4.00-5.30); RED CELL DISTRIBUTION WIDTH 12.5 % (11.6-17.2); WHITE BLOOD COUNT 15.1 TH/MM3 (4.0-11.0)
[2017-06-08 23:40] VITALS: O2SAT 99
[2017-06-08 23:53] LABS: ALBUMIN 3.6 GM/DL (3.4-5.0); ALKALINE PHOSPHATASE 93 U/L (45-117); ALT (GPT) 29 U/L (10-53); AST (GOT) 17 U/L (15-37); BICARBONATE 24.1 MEQ/L (21.0-32.0); BLOOD UREA NITROGEN 12 MG/DL (7-18); CALCIUM 9.6 MG/DL (8.5-10.1); CHLORIDE 108 MEQ/L (98-107); CREATININE 0.79 MG/DL (0.50-1.00); GLOMERULAR FILTRATION RATE 81 ML/MIN (>89); GLUCOSE,RANDOM 94 MG/DL (74-106); SODIUM (NA) 141 MEQ/L (136-145); TOTAL BILIRUBIN ADULT 0.2 MG/DL (0.2-1.0); TOTAL PROTEIN 7.9 GM/DL (6.4-8.2)
[2017-06-09] MEDS ORDERED: MORPHINE SULFATE 4 MG/ML INJ IV PUSH ONE (01:00)
[2017-06-09] MEDS ORDERED: ACETAMINOPHEN 500 MG CPLT PO PRN (02:15)
[2017-06-09] MEDS ORDERED: SODIUM CHLORIDE 0.9% FLUSH 10 ML FLUSH IV FLUSH PRN (02:15)
[2017-06-09] MEDS ORDERED: MORPHINE SULFATE 4 MG/ML INJ IV PUSH PRN (02:15)
[2017-06-09 02:16] VITALS: BP 168/73; PULSE 93; RESP 16; O2SAT 96
[2017-06-09] MEDS: SODIUM CHLOR 0.9% 1000 ML INJ 1,000 ML IV SCH ×3 (03:17→22:15)
[2017-06-09 05:11] VITALS: BP 157/85; PULSE 79; RESP 16; O2SAT 94
[2017-06-09] MEDS ORDERED: MECLIZINE HCL 25 MG TAB PO ONE (05:15)
[2017-06-09] MEDS: ONDANSETRON HCL 4 MG/2 ML VIAL IV PUSH PRN ×2 (05:38→07:59)
[2017-06-09 08:01] VITALS: BP 146/81; PULSE 81; RESP 16; O2SAT 98
[2017-06-09] MEDS ORDERED: METOCLOPRAMIDE HCL 10 MG/2 ML VIAL IV PUSH ONE (09:00)
[2017-06-09] MEDS: SODIUM CHLORIDE 0.9% FLUSH 10 ML FLUSH IV FLUSH SCH ×2 (09:00→19:56)
--- NOTE | 2017-06-09 09:54 | HHI.HP ---
HPI Service [facility] Hospitalists Primary Care Physician Valeriy Torre, DO Admission Diagnosis Pancreatitis, symptomatic cholelithiasis Chief Complaint: Right upper quadrant abdominal pain also unable to tolerate p.o. intake Travel History International Travel<30 Days: No Contact w/Intl Traveler <30 Da: No Traveled to Known Affected Are: No History of Present Illness This is a 37-year-old female patient with a past medical history which includes uterine fibroids, hidradenitis. Patient presented to the [facility] emergency department on 06/05/2017 with right upper quadrant abdominal pain ultrasound revealed cholelithiasis, no findings present to indicate acute gallbladder inflammation and hepatic steatosis. Patient again presented to [facility] emergency department evening of 06/08/2017 with right upper quadrant abdominal pain which radiates to the right shoulder and right lower back as well as inability to tolerate p.o. intake. Patient reports after attempting to eat or drink anything she has worsening of right upper quadrant abdominal as well as nausea and vomiting. Patient has outpatient appointment with Dr. Denis on June 16 however she has been unable to tolerate p.o. intake she presented to the emergency department for further evaluation and treatment. Patient denies diarrhea, fevers, chills, shortness of breath or chest pain. Review of Systems Constitutional: DENIES: Fatigue, Fever, Chills Eyes: DENIES: Blurred vision, Diplopia, Photosensitivity Respiratory: DENIES: Cough, Sputum production, Shortness of breath Cardiovascular: DENIES: Chest pain, Palpitations, Dyspnea on Exertion, Lower Extremity Edema Gastrointestinal: COMPLAINS OF: Abdominal pain, Nausea, Vomiting, DENIES: Constipation, Diarrhea Neurologic: DENIES: Headache, Localized weakness, Speech Problems Psychiatric: DENIES: Anxiety, Confusion, Depression Past Family Social History Past Medical History uterine fibroids, hidradenitis Past Surgical History Uterine uterine ablation 2007 2000 LAS with bilateral salpingectomy 2017 Reported Medications Zofran Odt (Ondansetron Odt) 4 Mg Tab 4 Mg SL Q6HR PRN Tramadol (Tramadol HCl) 50 Mg Tab 50 Mg PO Q6H PRN Flexeril (Cyclobenzaprine HCl) 10 Mg Tab 10 Mg PO TID Ibuprofen 800 Mg Tab 800 Mg PO Q8H PRN Allergies: Coded Allergies: cephalexin (Unverified Allergy, Severe, anaphalAXIS, 06/05/17) dexamethasone (Unverified Allergy, Severe, paresthesia, 06/05/17) lidocaine (Unverified Allergy, Severe, anaphalactic, 06/05/17) sulfamethoxazole (Unverified Allergy, Severe, anaph, 06/05/17) trimethoprim (Unverified Allergy, Severe, anaph, 06/05/17) Family History Noncontributory Social History Work as automotive glass technician at [employer] Tobacco use one fourth pack per day for the past 12 years Physical Exam Vital Signs Vital Signs Date Time Temp Pulse Resp B/P (MAP) Pulse Ox O2 Delivery O2 Flow Rate FiO2 06/09/17 08:01 81 16 146/81 (102) 98 Room Air 06/09/17 05:11 79 16 157/85 (109) 94 Room Air 06/09/17 02:16 93 16 168/73 (104) 96 Room Air 06/08/17 23:40 99 06/08/17 21:22 97.2 111 16 160/102 (121) 100 Physical Exam GENERAL: This is a well-nourished, well-developed patient, appears uncomfortable nauseated with intermitted vomiting SKIN: No rashes, ecchymoses or lesions. Cool and dry. HEAD: Atraumatic. Normocephalic. No temporal or scalp tenderness. EYES: Extraocular motions intact. No scleral icterus. No injection or drainage. CARDIOVASCULAR: Regular rate and rhythm RESPIRATORY: Clear to auscultation. Breath sounds equal bilaterally. GASTROINTESTINAL: Abdomen soft, tender worse RUQ, nondistended. MUSCULOSKELETAL: Extremities without clubbing, cyanosis, or edema. No joint tenderness, effusion, or edema noted. No calf tenderness. Negative Homans sign bilaterally. NEUROLOGICAL: Awake and alert. No focal deficits. Motor and sensory grossly within normal limits. Five out of 5 muscle strength in all muscle groups. Normal speech. Laboratory Laboratory Tests Test 06/08/17 23:22 White Blood Count 15.1 Red Blood Count 4.29 Hemoglobin 12.7 Hematocrit 37.1 Mean Corpuscular Volume 86.4 Mean Corpuscular Hemoglobin 29.7 Mean Corpuscular Hemoglobin Concent 34.3 Red Cell Distribution Width 12.5 Platelet Count 355 Mean Platelet Volume 7.3 Neutrophils (%) (Auto) 72.5 Lymphocytes (%) (Auto) 21.1 Monocytes (%) (Auto) 5.2 Eosinophils (%) (Auto) 0.5 Basophils (%) (Auto) 0.7 Neutrophils # (Auto) 11.0 Lymphocytes # (Auto) 3.2 Monocytes # (Auto) 0.8 Eosinophils # (Auto) 0.1 Basophils # (Auto) 0.1 CBC Comment DIFF FINAL Differential Comment Urine Color COLORLESS Urine Turbidity CLEAR Urine pH 6.0 Urine Specific [place] 1.001 Urine Protein NEG Urine Glucose (UA) NEG Urine Ketones NEG Urine Occult Blood TRACE Urine Nitrite NEG Urine Bilirubin NEG Urine Urobilinogen LESS THAN 2.0 Urine Leukocyte Esterase TRACE Urine RBC 2 Urine WBC 2 Urine Squamous Epithelial Cells 1 Urine Bacteria RARE Microscopic Urinalysis Comment CULT NOT INDICATED Blood Urea Nitrogen 12 Creatinine 0.79 Random Glucose 94 Total Protein 7.9 Albumin 3.6 Calcium Level 9.6 Alkaline Phosphatase 93 Aspartate Amino Transf (AST/SGOT) 17 Alanine Aminotransferase (ALT/SGPT) 29 Total Bilirubin 0.2 Sodium Level 141 Potassium Level 3.9 Chloride Level 108 Carbon Dioxide Level 24.1 Anion Gap 9 Estimat Glomerular Filtration Rate 81 Lactic Acid Level 0.6 Lipase 661 Result Diagram: 06/08/17 2322 06/08/17 2322 Imaging Last Impressions Cholangiopancreatography MRI 06/09/17 0000 Signed Impressions: Service Date/Time: May 13:14 - CONCLUSION: One prominent gallstone within the gallbladder. No evidence of common bile duct obstruction or mass. MD Delfino Blancas VTE Risk Assessment Caprini VTE Risk Assessment: No/Low Risk (score <= 1) Caprini Risk Assessment Model Point Value = 1 Point Value = 2 Point Value = 3 Point Value = 5 Age 41-60 Minor surgery BMI > 25 kg/m2 Swollen legs Varicose veins or History of unexplained or recurrent spontaneous Oral contraceptives or hormone replacement Sepsis (< 1 month) Serious lung disease, including pneumonia (< 1 month) Abnormal pulmonary function Acute myocardial infarction Congestive heart failure (< 1 month) History of inflammatory bowel disease Medical patient at bed rest Age 61-74 Arthroscopic surgery Major open surgery (> 45 min) Laparoscopic surgery (> 45 min) Malignancy Confined to bed (> 72 hours) Immobilizing plaster cast Central venous access Age >= 75 History of VTE Family history of VTE Factor V Leiden Prothrombin [id number] Lupus anticoagulant Anticardiolipin antibodies Elevated serum homocysteine Heparin-induced thrombocytopenia Other congenital or acquired thrombophilia Stroke (< 1 month) Elective arthroplasty Hip, pelvis, or leg fracture Acute spinal cord injury (< 1 month) Prophylaxis Regimen Total Risk Factor Score Risk Level Prophylaxis Regimen 0-1 Low Early ambulation 2 Moderate Order ONE of the following: *Sequential Compression Device (SCD) *Heparin 5000 units SQ BID 3-4 Higher Order ONE of the following medications: *Heparin 5000 units SQ TID *Enoxaparin/Lovenox 40 mg SQ daily (WT < 150 kg, CrCl > 30 mL/min) *Enoxaparin/Lovenox 30 mg SQ daily (WT < 150 kg, CrCl > 10-29 mL/min) *Enoxaparin/Lovenox 30 mg SQ BID (WT < 150 kg, CrCl > 30 mL/min) AND/OR *Sequential Compression Device (SCD) 5 or more Highest Order ONE of the following medications: *Heparin 5000 units SQ TID (Preferred with Epidurals) *Enoxaparin/Lovenox 40 mg SQ daily (WT < 150 kg, CrCl > 30 mL/min) *Enoxaparin/Lovenox 30 mg SQ daily (WT < 150 kg, CrCl > 10-29 mL/min) *Enoxaparin/Lovenox 30 mg SQ BID (WT < 150 kg, CrCl > 30 mL/min) AND *Sequential Compression Device (SCD) Assessment and Plan Problem List: (1) Pancreatitis ICD Codes: K85.90 - Acute pancreatitis without necrosis or infection, unspecified Status: Acute Plan: 06/05/2017 with right upper quadrant abdominal ultrasound revealed cholelithiasis, no findings present to indicate acute gallbladder inflammation and hepatic steatosis. Patient again presented to [facility] emergency department evening of 06/08/2017 with right upper quadrant abdominal pain which radiates to the right shoulder and right lower back as well as inability to tolerate p.o. intake. Patient reports after attempting to eat or drink anything she has worsening of right upper quadrant abdominal as well as nausea and vomiting. Patient has outpatient appointment with Dr. Denis on June 16 however she has been unable to tolerate p.o. intake she presented to the emergency department for further evaluation and treatment. Patient currently NPO Lipase (06/05) 89 -> (06/08) 661 -> (06/09) 65 clear liquid diet NPO after midnight Total bilirubin 0.2 AST 17 ALT 29 alkaline phosphatase 93 IV fluids for hydration White blood cell count 15.1, patient afebrile Morphine 2 mg every 4 hours as needed for pain Ondansetron as needed for nausea 06/05/2017 with right upper quadrant abdominal ultrasound revealed cholelithiasis , no findings present to indicate acute gallbladder inflammation and hepatic steatosis MRCP requested Consult general surgery (2) Symptomatic cholelithiasis ICD Codes: K80.20 - Calculus of gallbladder without cholecystitis without obstruction Status: Acute Plan: Per general surgery evaluation consistent with acute cholecystitis plan for OR tomorrow for laparoscopic possible open cholecystectomy. (3) Intractable nausea and vomiting ICD Codes: R11.2 - Nausea with vomiting, unspecified Status: Resolved Plan: Patient NPO IVF Ondansetron as needed Compazine and Reglan also ordered supportive care Assessment and Plan Patient examined. Assessment and plan formulated with Dorota Chris PA-C. I agree with the above. Pt with continued nausea. nausea better with scopolamine patch. MRCP (06/09) --> no evidence of CBD dilation Pt will go to OR in AM with Dr. Park for lap cholecystectomy. Problem Qualifiers (1) Pancreatitis: Qualified Codes: K85.90 - Acute pancreatitis without necrosis or infection, unspecified Dorota Chris Jun 09, 2017 09:54 Jorge Woody DO Jun 09, 2017 18:49
[2017-06-09] MEDS ORDERED: PROCHLORPERAZINE INJ 10 MG/2 ML VIAL IV PUSH ONE ×2 (10:30→14:45)
[2017-06-09] MEDS ORDERED: ONDANSETRON HCL 4 MG/2 ML VIAL IV PUSH PRN ×3 (10:45→16:45)
[2017-06-09 12:18] VITALS: BP 135/85; PULSE 90; RESP 16; TEMP 97.5; O2SAT 97
--- NOTE | 2017-06-09 13:59 | RADRPT ---
EXAM DATE/TIME: 06/09/2017 13:14 [place] COMPARISON: No previous studies available for comparison. INDICATIONS : Pain. Nausea and vomiting with abdominal pain. MEDICAL HISTORY : None. SURGICAL HISTORY : Hysterectomy. section. ENCOUNTER: Initial ACUITY: 1 day PAIN SCORE: 5/10 LOCATION: Right upper quadrant TECHNIQUE: Multiplanar, multisequence magnetic resonance imaging of the abdomen was performed. High-resolution 3D dataset was utilized to reconstruct maximum-intensity projection (MIP) images. FINDINGS: INTRAHEPATIC BILE DUCTS: Within normal limits. No significant anatomical variant is present. EXTRAHEPATIC BILE DUCTS: The common bile duct measures <3mm> No stone or filling defect is identified. GALLBLADDER: One prominent stone is identified without evidence of wall thickening, or pericholecystic fluid. LIVER: Normal size and signal intensity. No concerning liver lesion is identified on this non-contrast exam. PANCREAS: The main pancreatic duct is normal in size. There is no significant anatomical variant. Signal inte nsity is within normal limits. No mass is visualized on this non-contrast exam. OTHER: The remaining visualized structures demonstrate no acute abnormality on this non-contrast exam. CONCLUSION: One prominent gallstone within the gallbladder. No evidence of common bile duct obstruction or mass. Anselmo Leonard MD on June 09, 2017 at 13:56 Board Certified Radiologist. This report was verified electronically.
[2017-06-09 14:02] LABS: AUTOMATED NEUTROPHIL # 9.5 TH/MM3 (1.8-7.7); BASOPHIL % 0.4 % (0.0-2.0); EOSINOPHIL % 0.1 % (0.0-4.0); HEMATOCRIT 36.5 % (35.0-46.0); HEMOGLOBIN 12.4 GM/DL (11.6-15.3); LYMPH % 9.2 % (9.0-44.0); MEAN CELL VOLUME 87.4 FL (80.0-100.0); MEAN CORPUSCULAR HEMOGLOBIN 29.8 PG (27.0-34.0); MEAN CORPUSCULAR HGB CONC 34.1 % (32.0-36.0); MEAN PLATELET VOLUME 7.3 FL (7.0-11.0); MONO % 2.1 % (0.0-8.0); MONOCYTE # 0.2 TH/MM3 (0-0.9); NEUT % 88.2 % (16.0-70.0); PLATELET COUNT 358 TH/MM3 (150-450); RED BLOOD COUNT 4.17 MIL/MM3 (4.00-5.30); RED CELL DISTRIBUTION WIDTH 12.6 % (11.6-17.2); WHITE BLOOD COUNT 10.7 TH/MM3 (4.0-11.0)
[2017-06-09 14:19] LABS: ALBUMIN 3.3 GM/DL (3.4-5.0); ALT (GPT) 32 U/L (10-53); AST (GOT) 23 U/L (15-37); BICARBONATE 24.4 MEQ/L (21.0-32.0); BLOOD UREA NITROGEN 11 MG/DL (7-18); CALCIUM 8.5 MG/DL (8.5-10.1); CHLORIDE 109 MEQ/L (98-107); CREATININE 0.71 MG/DL (0.50-1.00); GLOMERULAR FILTRATION RATE 92 ML/MIN (>89); GLUCOSE,RANDOM 110 MG/DL (74-106); SODIUM (NA) 141 MEQ/L (136-145)
[2017-06-09 14:21] LABS: ALKALINE PHOSPHATASE 93 U/L (45-117); TOTAL BILIRUBIN ADULT 0.2 MG/DL (0.2-1.0); TOTAL PROTEIN 7.4 GM/DL (6.4-8.2)
[2017-06-09 16:12] VITALS: BP 129/78; PULSE 89; RESP 18; TEMP 97.9; O2SAT 95
--- NOTE | 2017-06-09 16:43 | PD.CONS ---
HPI Service General Surgery Consult Requested By Dr. Woody Reason for Consult biliary colic Primary Care Physician Valeriy Torre DO History of Present Illness 37 yo F works here in [employer] de[employer] presents with abdominal pain and vomiting since last Tuesday. The symptoms have waxed and waned. She presented to ED earlier this week. Now the symptoms again worsened yesterday and she is admitted. WBC on admission 15,000. U/s of gallbladder shows stones, but no wall thickening or pericholecystic fluid. She is actively vomiting and uncomfortable when I entered the room. Review of Systems Constitutional: DENIES: Fever, Chills Eyes: DENIES: Eye inflammation, Eye pain Gastrointestinal: COMPLAINS OF: Abdominal pain, Nausea, Vomiting Musculoskeletal: DENIES: Back pain, Neck pain Integumentary: DENIES: Pruritus, Rash Neurologic: DENIES: Paresthesias, Seizures Past Family Social History Past Medical History Fibroids Hidradenitis Obesity Past Surgical History Uterine uterine ablation 2006 2000 LAS with bilateral salpingectomy 2017 Reported Medications Reported Meds & Active Scripts Active Zofran Odt (Ondansetron Odt) 4 Mg Tab 4 Mg SL Q6HR PRN Tramadol (Tramadol HCl) 50 Mg Tab 50 Mg PO Q6H PRN Flexeril (Cyclobenzaprine HCl) 10 Mg Tab 10 Mg PO TID Ibuprofen 800 Mg Tab 800 Mg PO Q8H PRN Allergies: Coded Allergies: cephalexin (Unverified Allergy, Severe, anaphalAXIS, 06/05/17) dexamethasone (Unverified Allergy, Severe, paresthesia, 06/05/17) lidocaine (Unverified Allergy, Severe, anaphalactic, 06/05/17) sulfamethoxazole (Unverified Allergy, Severe, anaph, 06/05/17) trimethoprim (Unverified Allergy, Severe, anaph, 06/05/17) Active Ordered Medications Current Medications Medications (Trade) Dose Ordered Sig/Sarah Route Start Time Stop Time Status Last Admin (NS Flush) 2 ml UNSCH PRN IV FLUSH 06/08/17 23:15 06/08/17 23:42 Sodium Chloride 1,000 ml @ 100 mls/hr Q10H IV 06/09/17 02:15 06/09/17 14:58 (NS Flush) 2 ml UNSCH PRN IV FLUSH 06/09/17 02:15 (NS Flush) 2 ml BID IV FLUSH 06/09/17 09:00 (Tylenol) 500 mg Q4H PRN PO 06/09/17 02:15 ([place] 7.5-325 Mg) 1 tab Q4H PRN PO 06/09/17 02:15 (Morphine Inj) 2 mg Q4H PRN IV PUSH 06/09/17 02:15 (Zofran Inj) 8 mg Q6H PRN IV PUSH 06/09/17 13:00 Family History Noncontributory Social History Works in [employer] de[employer]. 02/17 ppd tobacco. Physical Exam Vital Signs Vital Signs Date Time Temp Pulse Resp B/P (MAP) Pulse Ox O2 Delivery O2 Flow Rate FiO2 06/09/17 16:12 97.9 89 18 129/78 (95) 95 06/09/17 12:18 97.5 90 16 135/85 (102) 97 06/09/17 08:01 81 16 146/81 (102) 98 Room Air 06/09/17 05:11 79 16 157/85 (109) 94 Room Air 06/09/17 02:16 93 16 168/73 (104) 96 Room Air 06/08/17 23:40 99 06/08/17 21:22 97.2 111 16 160/102 (121) 100 Physical Exam GENERAL: Obese. Uncomfortable and actively vomiting. HEAD: Normocephalic. Atraumatic. EYES: Pupils equal round and reactive to light bilaterally. No scleral icterus. ENT: Moist oral mucosa. NECK: Trachea midline. CHEST: Nonlabored breathing. No respiratory distress. CARDIOVASCULAR: Regular rate and rhythm. ABDOMEN: Obese. Multiple healed scars. Severe RUQ ttp. EXTREMITIES: No cyanosis or edema. SKIN: Warm, dry, nonjaundiced. Laboratory Laboratory Tests Test 06/08/17 23:22 06/09/17 13:50 White Blood Count 15.1 10.7 Red Blood Count 4.29 4.17 Hemoglobin 12.7 12.4 Hematocrit 37.1 36.5 Mean Corpuscular Volume 86.4 87.4 Mean Corpuscular Hemoglobin 29.7 29.8 Mean Corpuscular Hemoglobin Concent 34.3 34.1 Red Cell Distribution Width 12.5 12.6 Platelet Count 355 358 Mean Platelet Volume 7.3 7.3 Neutrophils (%) (Auto) 72.5 88.2 Lymphocytes (%) (Auto) 21.1 9.2 Monocytes (%) (Auto) 5.2 2.1 Eosinophils (%) (Auto) 0.5 0.1 Basophils (%) (Auto) 0.7 0.4 Neutrophils # (Auto) 11.0 9.5 Lymphocytes # (Auto) 3.2 1.0 Monocytes # (Auto) 0.8 0.2 Eosinophils # (Auto) 0.1 0.0 Basophils # (Auto) 0.1 0.0 CBC Comment DIFF FINAL DIFF FINAL Differential Comment Urine Color COLORLESS Urine Turbidity CLEAR Urine pH 6.0 Urine Specific [place] 1.001 Urine Protein NEG Urine Glucose (UA) NEG Urine Ketones NEG Urine Occult Blood TRACE Urine Nitrite NEG Urine Bilirubin NEG Urine Urobilinogen LESS THAN 2.0 Urine Leukocyte Esterase TRACE Urine RBC 2 Urine WBC 2 Urine Squamous Epithelial Cells 1 Urine Bacteria RARE Microscopic Urinalysis Comment CULT NOT INDICATED Blood Urea Nitrogen 12 11 Creatinine 0.79 0.71 Random Glucose 94 110 Total Protein 7.9 7.4 Albumin 3.6 3.3 Calcium Level 9.6 8.5 Alkaline Phosphatase 93 93 Aspartate Amino Transf (AST/SGOT) 17 23 Alanine Aminotransferase (ALT/SGPT) 29 32 Total Bilirubin 0.2 0.2 Sodium Level 141 141 Potassium Level 3.9 4.0 Chloride Level 108 109 Carbon Dioxide Level 24.1 24.4 Anion Gap 9 8 Estimat Glomerular Filtration Rate 81 92 Lactic Acid Level 0.6 Lipase 661 65 Result Diagram: 06/09/17 1350 06/09/17 1350 Imaging Last Impressions Cholangiopancreatography MRI 06/09/17 0000 Signed Impressions: Service Date/Time: May 13:14 - CONCLUSION: One prominent gallstone within the gallbladder. No evidence of common bile duct obstruction or mass. Anselmo Leonard MD Assessment and Plan Assessment and Plan 37 yo F who has evaluation consistent with acute cholecystitis. Recommend proceed to the operating room tomorrow for laparoscopic possible open cholecystectomy. Discussed with patient and she desires to proceed. Kavin Park MD Jun 09, 2017 16:43
[2017-06-09] MEDS: SCOPOLAMINE 1.5 MG PATCH T-DERMAL SCH (17:43)
[2017-06-09] MEDS: MECLIZINE HCL 25 MG TAB PO SCH (21:28)
[2017-06-09 21:43] VITALS: BP 129/70; PULSE 98; RESP 16; TEMP 98; O2SAT 98
[2017-06-09] MEDS ORDERED: POVIDONE IODINE 5% (ANTISEPSIS KIT) 4 APPLICATIONS EACH NARE PRN (22:45)
[2017-06-09] MEDS ORDERED: LACTATED RINGER'S 1000 ML IV PRN (22:45)
[2017-06-09] MEDS ORDERED: CHLORHEXIDINE GLUCONATE 2 % 1 PACK (2 CLOTHS) TOPICAL PRN (22:45)
[2017-06-09] MEDS ORDERED: METOPROLOL TARTRATE 25 MG TAB PO PRN (22:45)
[2017-06-09] MEDS ORDERED: SODIUM CHLORID 0.9% 500 ML IV PRN (22:45)
[2017-06-10 00:48] VITALS: BP 118/81; PULSE 104; RESP 16; TEMP 98.6; O2SAT 97
[2017-06-10 04:13] VITALS: BP 109/58; PULSE 66; RESP 16; TEMP 98.2; O2SAT 98
[2017-06-10] MEDS: SODIUM CHLOR 0.9% 1000 ML INJ 1,000 ML IV SCH ×4 (04:15→23:19)
[2017-06-10] MEDS: MECLIZINE HCL 25 MG TAB PO SCH ×3 (06:00→22:26)
[2017-06-10 07:14] LABS: AUTOMATED NEUTROPHIL # 7.8 TH/MM3 (1.8-7.7); BASOPHIL % 0.5 % (0.0-2.0); EOSINOPHIL # 0.1 TH/MM3 (0-0.4); HEMATOCRIT 32.3 % (35.0-46.0); HEMOGLOBIN 11.2 GM/DL (11.6-15.3); MEAN CELL VOLUME 86.9 FL (80.0-100.0); MEAN CORPUSCULAR HGB CONC 34.5 % (32.0-36.0); MEAN PLATELET VOLUME 7.4 FL (7.0-11.0); MONO % 6.3 % (0.0-8.0); MONOCYTE # 0.7 TH/MM3 (0-0.9); NEUT % 73.2 % (16.0-70.0); PLATELET COUNT 314 TH/MM3 (150-450); RED BLOOD COUNT 3.72 MIL/MM3 (4.00-5.30); RED CELL DISTRIBUTION WIDTH 12.8 % (11.6-17.2); WHITE BLOOD COUNT 10.6 TH/MM3 (4.0-11.0)
[2017-06-10 07:41] LABS: ALBUMIN 2.8 GM/DL (3.4-5.0); AST (GOT) 14 U/L (15-37); BICARBONATE 26.3 MEQ/L (21.0-32.0); BLOOD UREA NITROGEN 9 MG/DL (7-18); CALCIUM 8.3 MG/DL (8.5-10.1); CHLORIDE 111 MEQ/L (98-107); CREATININE 0.62 MG/DL (0.50-1.00); GLOMERULAR FILTRATION RATE 107 ML/MIN (>89); GLUCOSE,RANDOM 89 MG/DL (74-106); SODIUM (NA) 144 MEQ/L (136-145)
[2017-06-10 07:43] LABS: ALT (GPT) 26 U/L (10-53)
[2017-06-10 07:45] LABS: ALKALINE PHOSPHATASE 75 U/L (45-117); TOTAL BILIRUBIN ADULT 0.2 MG/DL (0.2-1.0); TOTAL PROTEIN 6.3 GM/DL (6.4-8.2)
[2017-06-10 08:09] VITALS: BP 120/61; PULSE 74; RESP 18; TEMP 98.7; O2SAT 97
[2017-06-10] MEDS: SODIUM CHLORIDE 0.9% FLUSH 10 ML FLUSH IV FLUSH SCH ×2 (09:00→21:00)
[2017-06-10] MEDS ORDERED: MIDAZOLAM HCL 2 MG/2 ML VIAL ONE (11:31)
[2017-06-10] MEDS ORDERED: FAMOTIDINE 20 MG/2 ML VIAL ONE (11:31)
[2017-06-10] MEDS ORDERED: ACETAMINOPHEN 1000 MG/100 ML 100 ML IV ONE (11:31)
[2017-06-10] MEDS ORDERED: NEOSTIGMINE 5 MG/5 ML SYRINGE IV PUSH ONE (12:00)
[2017-06-10] MEDS ORDERED: SUCCINYLCHOLINE CHLORIDE 100 MG/5 ML SYRINGE IV PUSH ONE (12:00)
[2017-06-10] MEDS ORDERED: SODIUM CHLOR 0.9% 250 ML INJ 250 ML IV ONE (12:00)
[2017-06-10] MEDS ORDERED: GLYCOPYRROLATE 1 MG/5 ML SYRINGE IV PUSH ONE (12:00)
[2017-06-10] MEDS ORDERED: ONDANSETRON HCL 4 MG/2 ML VIAL IV ONE (12:00)
[2017-06-10] MEDS ORDERED: PROPOFOL 200 MG/20 ML AMP IV ONE (12:00)
[2017-06-10] MEDS ORDERED: ROCURONIUM INJ 50 MG/5 ML SYRINGE IV PUSH ONE (12:00)
[2017-06-10] MEDS ORDERED: VANCOMYCIN HCL 1000 MG VIAL ONE (12:10)
[2017-06-10] MEDS ORDERED: metroNIDAZOLE 500 MG INJ 100 ML IV ONE (12:10)
[2017-06-10] MEDS ORDERED: VANCOMYCIN 500 MG VIAL ONE (12:10)
--- NOTE | 2017-06-10 12:48 | PD.OP ---
cc: Kavin Park MD Operative Report Date of Surgery: Jun 10, 2017 Preoperative Diagnosis: (1) Symptomatic cholelithiasis Postoperative Diagnosis: (1) Symptomatic cholelithiasis Procedure: Laparoscopic cholecystectomy Anesthesia: General Surgeon: Kavin Park Gravedigger(s): Heidy ALBRIGHT Operation and Findings: Complications: None apparent EBL: 5cc Operative findings: Chronic thickening near infundibulum. Gallstone. Procedure in detail: The patient was taken to the operating room and placed in the supine position. General endotracheal anesthesia was induced. The abdomen was prepped and draped in usual sterile fashion and a surgical timeout was performed to verify correct patient procedure and site. Appropriate perioperative antibiotics were administered. Local anesthetic was injected in the skin and subcutaneous tissue superior to the umbilicus and a 5 mm incision performed. The abdomen was entered using the Optiview 5 mm trocar with direct laparoscopic visualization. The abdomen was then insufflated to 15 mmHg with CO2 gas which the patient tolerated well. Next a 12 mm port was placed in the epigastrium and two 5 mm ports in the right upper quadrant and right lateral abdomen. The patient was placed in reverse Trendelenburg position and turned slightly to the left. Attention was turned to the right upper quadrant and the dome of the gallbladder was grasped and retracted cephalad. The infundibulum was retracted laterally to expose Calot's triangle. The gallbladder neck was elongated. There was some chronic thickening in area of infundibulum although no acute inflammation.Blunt dissection and judicious use of electrocautery was used to expose the cystic duct and the cystic artery directly entering the gallbladder. Two clips were placed proximally on each of these structures and one distally and they were transected. The gallbladder was then removed from the liver bed using electrocautery. Hemostasis was achieved. The gallbladder was then removed from the abdomen using an Endo Catch bag. The clips were in place on the cystic duct and cystic artery stumps with no bleeding or bile leakage. At this point, the abdomen was allowed to desufflate and trochars were removed. The fascia at the 12 mm port site was closed with 0 Vicryl suture using fascial closure device. Skin was closed with subcuticular 4-0 Monocryl as well as Dermabond. The patient tolerated the procedure well and was extubated and taken to PACU in stable condition. All sponge and instrument counts were correct. Kavin Park MD Jun 10, 2017 12:48
[2017-06-10] MEDS ORDERED: *PROMETHAZINE 25 MG/ML VIAL PERIprocedural use ONLY ONE (13:16)
[2017-06-10] MEDS ORDERED: MORPHINE SULFATE 8 MG/ML INJ ONE (13:42)
[2017-06-10] MEDS: SCOPOLAMINE 1.5 MG PATCH T-DERMAL SCH (13:53)
[2017-06-10] MEDS ORDERED: DO NOT ADM ANY ANTICOAGULANT DRUGS PRN (14:30)
--- NOTE | 2017-06-10 15:21 | HHI.PR ---
Subjective Remarks Patient s/p Laparoscopic cholecystectomy, No longer having N/V Objective Vitals Vital Signs Date Time Temp Pulse Resp B/P (MAP) Pulse Ox O2 Delivery O2 Flow Rate FiO2 06/10/17 13:06 98.4 90 16 142/85 (104) 100 06/10/17 08:09 98.7 74 18 120/61 (80) 97 06/10/17 04:13 98.2 66 16 109/58 (75) 98 06/10/17 00:48 98.6 104 16 118/81 (93) 97 06/09/17 21:43 98.0 98 16 129/70 (89) 98 06/09/17 16:12 97.9 89 18 129/78 (95) 95 06/10/17 06/10/17 06/11/17 15:00 23:00 07:00 Intake Total 600 ml Output Total 30 ml Balance 570 ml Other 600 ml Output Estimated Blood Loss 30 ml Result Diagram: 06/10/1730 06/10/17629 Other Results Laboratory Tests Test 06/08/17 23:22 06/09/17 13:50 06/10/17 06:30 White Blood Count 15.1 TH/MM3 10.7 TH/MM3 10.6 TH/MM3 Red Blood Count 4.29 MIL/MM3 4.17 MIL/MM3 3.72 MIL/MM3 Hemoglobin 12.7 GM/DL 12.4 GM/DL 11.2 GM/DL Hematocrit 37.1 % 36.5 % 32.3 % Mean Corpuscular Volume 86.4 FL 87.4 FL 86.9 FL Mean Corpuscular Hemoglobin 29.7 PG 29.8 PG 30.0 PG Mean Corpuscular Hemoglobin Concent 34.3 % 34.1 % 34.5 % Red Cell Distribution Width 12.5 % 12.6 % 12.8 % Platelet Count 355 TH/MM3 358 TH/MM3 314 TH/MM3 Mean Platelet Volume 7.3 FL 7.3 FL 7.4 FL Neutrophils (%) (Auto) 72.5 % 88.2 % 73.2 % Lymphocytes (%) (Auto) 21.1 % 9.2 % 19.0 % Monocytes (%) (Auto) 5.2 % 2.1 % 6.3 % Eosinophils (%) (Auto) 0.5 % 0.1 % 1.0 % Basophils (%) (Auto) 0.7 % 0.4 % 0.5 % Neutrophils # (Auto) 11.0 TH/MM3 9.5 TH/MM3 7.8 TH/MM3 Lymphocytes # (Auto) 3.2 TH/MM3 1.0 TH/MM3 2.0 TH/MM3 Monocytes # (Auto) 0.8 TH/MM3 0.2 TH/MM3 0.7 TH/MM3 Eosinophils # (Auto) 0.1 TH/MM3 0.0 TH/MM3 0.1 TH/MM3 Basophils # (Auto) 0.1 TH/MM3 0.0 TH/MM3 0.0 TH/MM3 CBC Comment DIFF FINAL DIFF FINAL DIFF FINAL Differential Comment Urine Color COLORLESS Urine Turbidity CLEAR Urine pH 6.0 Urine Specific [place] 1.001 Urine Protein NEG mg/dL Urine Glucose (UA) NEG mg/dL Urine Ketones NEG mg/dL Urine Occult Blood TRACE Urine Nitrite NEG Urine Bilirubin NEG Urine Urobilinogen LESS THAN 2.0 MG/DL Urine Leukocyte Esterase TRACE Urine RBC 2 /hpf Urine WBC 2 /hpf Urine Squamous Epithelial Cells 1 /hpf Urine Bacteria RARE /hpf Microscopic Urinalysis Comment CULT NOT INDICATED Blood Urea Nitrogen 12 MG/DL 11 MG/DL 9 MG/DL Creatinine 0.79 MG/DL 0.71 MG/DL 0.62 MG/DL Random Glucose 94 MG/DL 110 MG/DL 89 MG/DL Total Protein 7.9 GM/DL 7.4 GM/DL 6.3 GM/DL Albumin 3.6 GM/DL 3.3 GM/DL 2.8 GM/DL Calcium Level 9.6 MG/DL 8.5 MG/DL 8.3 MG/DL Alkaline Phosphatase 93 U/L 93 U/L 75 U/L Aspartate Amino Transf (AST/SGOT) 17 U/L 23 U/L 14 U/L Alanine Aminotransferase (ALT/SGPT) 29 U/L 32 U/L 26 U/L Total Bilirubin 0.2 MG/DL 0.2 MG/DL 0.2 MG/DL Sodium Level 141 MEQ/L 141 MEQ/L 144 MEQ/L Potassium Level 3.9 MEQ/L 4.0 MEQ/L 3.5 MEQ/L Chloride Level 108 MEQ/L 109 MEQ/L 111 MEQ/L Carbon Dioxide Level 24.1 MEQ/L 24.4 MEQ/L 26.3 MEQ/L Anion Gap 9 MEQ/L 8 MEQ/L 7 MEQ/L Estimat Glomerular Filtration Rate 81 ML/MIN 92 ML/MIN 107 ML/MIN Lactic Acid Level 0.6 mmol/L Lipase 661 U/L 65 U/L Imaging Last Impressions Cholangiopancreatography MRI 06/09/17 0000 Signed Impressions: Service Date/Time: May 13:14 - CONCLUSION: One prominent gallstone within the gallbladder. No evidence of common bile duct obstruction or mass. Anselmo Leonard MD Objective Remarks GENERAL: This is a well-nourished, well-developed patient, appears uncomfortable nauseated with intermitted vomiting SKIN: abdominal laparoscopic incisions dressing present dry and intact CARDIOVASCULAR: Regular rate and rhythm RESPIRATORY: Clear to auscultation. Breath sounds equal bilaterally. GASTROINTESTINAL: Abdomen soft, mild abd tenderness, nondistended. MUSCULOSKELETAL: Extremities without clubbing, cyanosis, or edema. No joint tenderness, effusion, or edema noted. No calf tenderness. Negative Homans sign bilaterally. NEUROLOGICAL: Awake and alert. No focal deficits. Motor and sensory grossly within normal limits. Five out of 5 muscle strength in all muscle groups. Normal speech. Procedures 06/[address] Park A/P Problem List: (1) Pancreatitis ICD Codes: K85.90 - Acute pancreatitis without necrosis or infection, unspecified Status: Acute Plan: [place] [facility] with right upper quadrant abdominal ultrasound revealed cholelithiasis, no findings present to indicate acute gallbladder inflammation and hepatic steatosis. Patient again presented to [facility] emergency department evening of 06/08/2017 with right upper quadrant abdominal pain which radiates to the right shoulder and right lower back as well as inability to tolerate p.o. intake. Patient reports after attempting to eat or drink anything she has worsening of right upper quadrant abdominal as well as nausea and vomiting. Patient has outpatient appointment with Dr. Denis on June 16 however she has been unable to tolerate p.o. intake she presented to the emergency department for further evaluation and treatment. Lipase (06/05) 89 -> (06/08) 661 -> (06/09) 65 Total bilirubin 0.2 AST 17 ALT 29 alkaline phosphatase 93 IV fluids for hydration on admission White blood cell count 15.1, patient afebrile Morphine 2 mg every 4 hours as needed for pain Ondansetron as needed for nausea 06/05/2017 with right upper quadrant abdominal ultrasound revealed cholelithiasis , no findings present to indicate acute gallbladder inflammation and hepatic steatosis 06/09 MRCP revealed one prominent gallstone within the gallbladder. no evidence of common bile duct obstruction or mass. Consult general surgery, appreciate input 06/[address]. Park Plan to DC tomorrow (2) Symptomatic cholelithiasis ICD Codes: K80.20 - Calculus of gallbladder without cholecystitis without obstruction Status: Acute Plan: see above (3) Intractable nausea and vomiting ICD Codes: R11.2 - Nausea with vomiting, unspecified Status: Resolved Plan: IVF Ondansetron as needed Compazine and Reglan also ordered supportive care Assessment and Plan Patient examined. Assessment and plan formulated with Dorota Chris PA-C. I agree with the above. Pt appears much more comfortable, s/p choley. Pt no longer c/o nausea. Mild abdominal pain c/w recent surgery. Will observe pt overnight. Anticipate d/c to home 06/11/17. Problem Qualifiers (1) Pancreatitis: Qualified Codes: K85.90 - Acute pancreatitis without necrosis or infection, unspecified Dorota Chris Jun 10, 2017 15:21 Jorge Woody DO Jun 10, 2017 22:00
--- NOTE | 2017-06-10 15:24 | HHI.DCPOC ---
Discharge Care Plan Diagnosis: (1) Pancreatitis (2) Symptomatic cholelithiasis (3) Intractable nausea and vomiting Goals to Promote Your Health * To prevent worsening of your condition and complications * To maintain your health at the optimal level Directions to Meet Your Goals Take your medications as prescribed Follow your dietary instruction Follow activity as directed Keep your appointments as scheduled Take your immunizations and boosters as scheduled If your symptoms worsen call your PCP, if no PCP go to Urgent Care Center or Emergency Room Smoking is Dangerous to Your Health. Avoid second hand smoke Call the 24-hour hour crisis hotline for domestic abuse at Dorota Chris Jun 10, 2017 15:24 Jorge Woody DO Jun 10, 2017 21:58
[2017-06-10 16:00] VITALS: BP 150/94; PULSE 84; RESP 19; TEMP 97.2; O2SAT 96
[2017-06-10] MEDS: ACETAMINOPHEN/HYDROcodone 325 MG/7.5 MG TAB PO PRN ×2 (17:15→23:12)
[2017-06-10 20:00] VITALS: BP 143/90; PULSE 79; RESP 18; TEMP 97.7; O2SAT 98
[2017-06-11] VITALS: BP 153/85; PULSE 76; RESP 16; TEMP 97.8; O2SAT 98
[2017-06-11] MEDS: MECLIZINE HCL 25 MG TAB PO SCH (04:26)
[2017-06-11 05:29] LABS: BASOPHIL % 0.4 % (0.0-2.0); EOSINOPHIL # 0.2 TH/MM3 (0-0.4); EOSINOPHIL % 1.3 % (0.0-4.0); HEMOGLOBIN 10.9 GM/DL (11.6-15.3); LYMPH % 14.3 % (9.0-44.0); LYMPHOCYTE # 1.6 TH/MM3 (1.0-4.8); MEAN CORPUSCULAR HEMOGLOBIN 29.7 PG (27.0-34.0); MEAN CORPUSCULAR HGB CONC 34.1 % (32.0-36.0); MEAN PLATELET VOLUME 7.5 FL (7.0-11.0); MONO % 6.3 % (0.0-8.0); MONOCYTE # 0.7 TH/MM3 (0-0.9); NEUT % 77.7 % (16.0-70.0); PLATELET COUNT 291 TH/MM3 (150-450); RED BLOOD COUNT 3.68 MIL/MM3 (4.00-5.30); RED CELL DISTRIBUTION WIDTH 12.8 % (11.6-17.2); WHITE BLOOD COUNT 11.6 TH/MM3 (4.0-11.0)
[2017-06-11 05:50] LABS: ALBUMIN 2.9 GM/DL (3.4-5.0); ALKALINE PHOSPHATASE 75 U/L (45-117); ALT (GPT) 42 U/L (10-53); AST (GOT) 29 U/L (15-37); BICARBONATE 27.8 MEQ/L (21.0-32.0); BLOOD UREA NITROGEN 7 MG/DL (7-18); CALCIUM 8.1 MG/DL (8.5-10.1); CHLORIDE 109 MEQ/L (98-107); GLOMERULAR FILTRATION RATE 93 ML/MIN (>89); GLUCOSE,RANDOM 78 MG/DL (74-106); SODIUM (NA) 144 MEQ/L (136-145); TOTAL BILIRUBIN ADULT 0.3 MG/DL (0.2-1.0); TOTAL PROTEIN 6.4 GM/DL (6.4-8.2)
[2017-06-11 08:00] VITALS: BP 144/95; PULSE 80; RESP 17; TEMP 97.4; O2SAT 98
[2017-06-11] MEDS: SODIUM CHLORIDE 0.9% FLUSH 10 ML FLUSH IV FLUSH SCH (09:00)
[2017-06-11] MEDS ORDERED: HYDR-3580 PO (09:56)
[2017-06-11] MEDS ORDERED: MECL1TAB42 PO (09:56)
--- NOTE | 2017-06-11 10:00 | HHI.DCPOC ---
Discharge Care Plan Diagnosis: (1) Cholecystitis (2) S/P cholecystectomy (3) Intractable nausea and vomiting Goals to Promote Your Health * To prevent worsening of your condition and complications * To maintain your health at the optimal level Directions to Meet Your Goals Take your medications as prescribed Follow your dietary instruction Follow activity as directed Keep your appointments as scheduled Take your immunizations and boosters as scheduled If your symptoms worsen call your PCP, if no PCP go to Urgent Care Center or Emergency Room Smoking is Dangerous to Your Health. Avoid second hand smoke Call the 24-hour hour crisis hotline for domestic abuse at Jorge Woody DO Jun 11, 2017 10:00
--- NOTE | 2017-06-11 10:15 | HHI.DS ---
Discharge Summary Admission Date Jun 09, 2017 at 00:43 Discharge Date: Jun 11, 2017 Admitting Diagnosis Pancreatitis, symptomatic cholelithiasis (1) Pancreatitis Diagnosis: Principal ICD Codes: K85.90 - Acute pancreatitis without necrosis or infection, unspecified Status: Acute (2) Symptomatic cholelithiasis Diagnosis: Principal ICD Codes: K80.20 - Calculus of gallbladder without cholecystitis without obstruction Status: Acute (3) Intractable nausea and vomiting Diagnosis: Principal ICD Codes: R11.2 - Nausea with vomiting, unspecified Status: Resolved Consultants Dr. Park, general surgery Procedures 06/[address] Park Brief History This is a 37-year-old female patient with a past medical history which includes uterine fibroids, hidradenitis. Patient presented to the [facility] emergency department on 06/05/2017 with right upper quadrant abdominal pain ultrasound revealed cholelithiasis, no findings present to indicate acute gallbladder inflammation and hepatic steatosis. Patient again presented to [facility] emergency department evening of 06/08/2017 with right upper quadrant abdominal pain which radiates to the right shoulder and right lower back as well as inability to tolerate p.o. intake. Patient reports after attempting to eat or drink anything she has worsening of right upper quadrant abdominal as well as nausea and vomiting. Patient has outpatient appointment with Dr. Denis on June 16 however she has been unable to tolerate p.o. intake she presented to the emergency department for further evaluation and treatment. Patient denies diarrhea, fevers, chills, shortness of breath or chest pain. CBC/BMP: 06/11/17 0413 06/11/17 0413 Significant Findings Laboratory Tests Test 06/08/17 23:22 06/09/17 13:50 06/10/17 06:30 06/11/17 04:13 White Blood Count 15.1 TH/MM3 (4.0-11.0) 11.6 TH/MM3 (4.0-11.0) Neutrophils (%) (Auto) 72.5 % (16.0-70.0) 88.2 % (16.0-70.0) 73.2 % (16.0-70.0) 77.7 % (16.0-70.0) Neutrophils # (Auto) 11.0 TH/MM3 (1.8-7.7) 9.5 TH/MM3 (1.8-7.7) 7.8 TH/MM3 (1.8-7.7) 9.0 TH/MM3 (1.8-7.7) Urine Specific [place] 1.001 (1.002-1.035) Urine Occult Blood TRACE (NEG) Urine Leukocyte Esterase TRACE (NEG) Urine Bacteria RARE /hpf (NONE) Chloride Level 108 MEQ/L (98-107) 109 MEQ/L (98-107) 111 MEQ/L (98-107) 109 MEQ/L (98-107) Estimat Glomerular Filtration Rate 81 ML/MIN (>89) Lipase 661 U/L (73-393) 65 U/L (73-393) 54 U/L (73-393) Random Glucose 110 MG/DL (74-106) Albumin 3.3 GM/DL (3.4-5.0) 2.8 GM/DL (3.4-5.0) 2.9 GM/DL (3.4-5.0) Red Blood Count 3.72 MIL/MM3 (4.00-5.30) 3.68 MIL/MM3 (4.00-5.30) Hemoglobin 11.2 GM/DL (11.6-15.3) 10.9 GM/DL (11.6-15.3) Hematocrit 32.3 % (35.0-46.0) 32.0 % (35.0-46.0) Total Protein 6.3 GM/DL (6.4-8.2) Calcium Level 8.3 MG/DL (8.5-10.1) 8.1 MG/DL (8.5-10.1) Aspartate Amino Transf (AST/SGOT) 14 U/L (15-37) Imaging Last Impressions Cholangiopancreatography MRI 06/09/17 0000 Signed Impressions: Service Date/Time: May 13:14 - CONCLUSION: One prominent gallstone within the gallbladder. No evidence of common bile duct obstruction or mass. Anselmo Leonard MD PE at Discharge GENERAL: This is a well-nourished, well-developed patient, appears uncomfortable nauseated with intermitted vomiting SKIN: abdominal laparoscopic incisions dressing present dry and intact CARDIOVASCULAR: Regular rate and rhythm RESPIRATORY: Clear to auscultation. Breath sounds equal bilaterally. GASTROINTESTINAL: Abdomen soft, mild abd tenderness, nondistended. MUSCULOSKELETAL: Extremities without clubbing, cyanosis, or edema. No joint tenderness, effusion, or edema noted. No calf tenderness. Negative Homans sign bilaterally. NEUROLOGICAL: Awake and alert. No focal deficits. Motor and sensory grossly within normal limits. Five out of 5 muscle strength in all muscle groups. Normal speech. Hospital Course Pancreatitis Patient presented to [facility] [place] on 06/05/2017 with right upper quadrant abdominal ultrasound revealed cholelithiasis, no findings present to indicate acute gallbladder inflammation and hepatic steatosis. Patient again presented to [facility] emergency department evening of 06/08/2017 with right upper quadrant abdominal pain which radiates to the right shoulder and right lower back as well as inability to tolerate p.o. intake. Patient reports after attempting to eat or drink anything she has worsening of right upper quadrant abdominal as well as nausea and vomiting. Patient has outpatient appointment with Dr. Denis on June 16 however she has been unable to tolerate p.o. intake she presented to the emergency department for further evaluation and treatment. Lipase (06/05) 89 -> (06/08) 661 -> (06/09) 65 Total bilirubin 0.2 AST 17 ALT 29 alkaline phosphatase 93 IV fluids for hydration on admission White blood cell count 15.1, patient afebrile Morphine and norco as needed for pain antiemetics as needed for nausea 06/05/2017 with right upper quadrant abdominal ultrasound revealed cholelithiasis , no findings present to indicate acute gallbladder inflammation and hepatic steatosis 06/09 MRCP revealed one prominent gallstone within the gallbladder. no evidence of common bile duct obstruction or mass. Consult general surgery, appreciate input 06/[address] with [address] Park Tolerating PO intake passing flatus reports minimal pain Symptomatic cholelithiasis see above Intractable nausea and vomiting- resolved IVF Ondansetron as needed Compazine and Reglan also ordered supportive care Pt Condition on Discharge: Stable Discharge Disposition: Discharge Home Discharge Instructions DIET: Follow Instructions for: Low Fat Diet Activities you can perform: Weight Bearing as Lisandra Activities to Avoid: Lifting/Bending, Strenuous Activity Follow up Referrals: PCP Follow-up - [address] [facility] - [address] Park New Medications: Hydrocodone/Acetaminophen (Hydrocodone-Acetamin 7.5-325) 7.5 Mg-325 Mg Tablet 1 TAB PO Q4H PRN for pain, #12 TAB 0 Refills Meclizine HCl (Meclizine 25) 25 Mg Tab 25 MG PO Q8HR PRN for VERTIGO, #15 TAB 0 Refills Continued Medications: Cyclobenzaprine (Flexeril) 10 Mg Tab 10 MG PO TID for Muscle Spasm, #21 TAB Ondansetron Odt (Zofran Odt) 4 Mg Tab 4 MG SL Q6HR PRN for Nausea/Vomiting, #15 TAB 0 Refills Tramadol (Tramadol) 50 Mg Tab 50 MG PO Q6H PRN for PAIN, #10 TAB 0 Refills Discontinued Medications: Ibuprofen (Ibuprofen) 800 Mg Tab 800 MG PO Q8H PRN for Pain/Inflammation, #21 TAB Additional Information CBC and BMP in 1 week with results to PCP Dr. Torre and Dr. Park Patient examined. Assessment and plan formulated with Dorota Chris PA-C. I agree with the above. Dorota Chris Jun 11, 2017 10:15 Jorge Woody DO Jun 11, 2017 10:26
--- NOTE | 2017-06-11 10:53 | HHI.PR ---
Subjective Subjective Notes Doing much better. No nausea and tolerating solid food for breakfast. Objective Vitals/I&O Vital Signs Date Time Temp Pulse Resp B/P (MAP) Pulse Ox O2 Delivery O2 Flow Rate FiO2 06/11/17 08:00 97.4 80 17 144/95 (111) 98 06/10/17 14:15 Room Air Labs Laboratory Tests Test 06/11/17 04:13 White Blood Count 11.6 Red Blood Count 3.68 Hemoglobin 10.9 Hematocrit 32.0 Mean Corpuscular Volume 87.0 Mean Corpuscular Hemoglobin 29.7 Mean Corpuscular Hemoglobin Concent 34.1 Red Cell Distribution Width 12.8 Platelet Count 291 Mean Platelet Volume 7.5 Neutrophils (%) (Auto) 77.7 Lymphocytes (%) (Auto) 14.3 Monocytes (%) (Auto) 6.3 Eosinophils (%) (Auto) 1.3 Basophils (%) (Auto) 0.4 Neutrophils # (Auto) 9.0 Lymphocytes # (Auto) 1.6 Monocytes # (Auto) 0.7 Eosinophils # (Auto) 0.2 Basophils # (Auto) 0.0 CBC Comment DIFF FINAL Differential Comment Blood Urea Nitrogen 7 Creatinine 0.70 Random Glucose 78 Total Protein 6.4 Albumin 2.9 Calcium Level 8.1 Alkaline Phosphatase 75 Aspartate Amino Transf (AST/SGOT) 29 Alanine Aminotransferase (ALT/SGPT) 42 Total Bilirubin 0.3 Sodium Level 144 Potassium Level 3.7 Chloride Level 109 Carbon Dioxide Level 27.8 Anion Gap 7 Estimat Glomerular Filtration Rate 93 Lipase 54 Radiology Last Impressions Cholangiopancreatography MRI 06/09/17 0000 Signed Impressions: Service Date/Time: May 13:14 - CONCLUSION: One prominent gallstone within the gallbladder. No evidence of common bile duct obstruction or mass. Anselmo Leonard MD Narrative Exam NAD Abd: soft, inc c/d/i A/P Assessment and Plan POD 1 s/p lap lenin, doing well post op. Clear for dc home. F/u in two weeks. Kavin Park MD Jun 11, 2017 10:53
== END 2017-06-11 11:51 | disposition home or self-care (01) ==
LOC: NEPE 21:10 → NEDA 06-09 00:43 → NEDH 06-09 05:25 → NEPHCDU 06-09 12:05 → N07A 06-10 14:39
PROVIDERS: ADMIT Hospitalist; ATTEND Hospitalist
DX: K85.90 Acute pancreatitis without necrosis or infection, unspecified (principal); K80.10 Calculus of gallbladder with chronic cholecystitis without obstruction; F17.200 Nicotine dependence, unspecified, uncomplicated; E66.9 Obesity, unspecified
CPT/HCPCS: 00790; 47562; 74181; 76377; 80053; 81001; 82948; 83605; 83690; 85025; 88304; 96361; 96374; 96375; 96376; 99285; G0378; J0131; J0330; J0780; J1885; J2250; J2270; J2405; J2550; J2710; J2765; J3010; J3370; J7030; J7050